=== PATIENT | female | born 1970 | race African-American/Black ===

== ENCOUNTER 2020-09-03 11:11 | Outpatient (REF) | payer OTHER, SELFPAY ==
[2020-09-03 12:02] LABS: Hematocrit 38.8 % (37-47); Hemoglobin 12.8 g/dl (12.0-16.0); Mean Corpuscular Hemoglobin 28.2 pg (27.0-33.0); Mean Corpuscular Volume 85.5 fL (80-98); Mean Platelet Volume 10.3 fL (9.4-12.3); Platelet Count 268 X10*3/uL (160-400); Red Blood Count 4.54 X10*6/uL (4.20-5.50); Red Cell Distribution Width 13.9 % (11.0-16.0); White Blood Count 5.5 X10*3/uL (4.8-10.8)
[2020-09-03 12:25] LABS: Alanine Aminotransferase 12 U/L (0-31); Albumin Level 4.4 g/dL (3.5-5.0); Alkaline Phosphatase 84 U/L (39-117); Anion Gap 12 (12-20); Aspartate Amino Transferase 13 U/L (5-31); Bilirubin Total 0.2 mg/dL (0.0-1.0); Blood Urea Nitrogen 9 mg/dL (9-16); Calcium 9.5 mg/dL (8.4-10.2); Carbon Dioxide 31 mmol/L (22-29); Chloride 101 mmol/L (96-108); Cholesterol 199 mg/dL; Estimated Glomerular Filt Rate > 60; Glucose Fasting 98 mg/dL (60-99); HDL Cholesterol 55 mg/dL; LDL Cholesterol Calculated 131 mg/dl; Potassium 3.3 mmol/L (3.3-5.1); Sodium 141 mmol/L (135-145); Total Protein 7.2 g/dL (6.5-8.0); Triglycerides 69 mg/dL
[2020-09-03 12:46] LABS: TSH reflex Free T4 0.32 uIU/mL (0.32-4.0)
[2020-09-03 13:51] LABS: Creatinine Urine 139.63 mg/dL; Microalbum/Creatinine Ratio Ur 7.8 ug/mg cr
== END 2020-09-03 11:12 | disposition home or self-care (01) ==
LOC: HO.LAB 11:11
PROVIDERS: PCP Physician Assistant; Visit Provider Physician Assistant
DX: E78.5 Hyperlipidemia, unspecified (principal); I10 Essential (primary) hypertension
CPT/HCPCS: 36415; 80053; 80061; 82043; 84443; 85027

== ENCOUNTER 2021-01-26 08:40 | Outpatient (RCR) | payer OTHER, SELFPAY ==
--- NOTE | 2021-02-07 17:27 | MHC.SP.ADU ---
Referring provider: Paulo Maldonado PA-C Reason for Referral: Severe aphasia Type of Treatment: 96747 Evaluation Speech Sound Production WITH Language Date of Plan of Treatment: 01/26/21 Onset of Symptoms/Illness: 03/19/09 Date Treatment Started: 01/26/21 Medical Diagnosis: Stroke 2010 Primary Speech Language Diagnosis: R47.01 Aphasia Secondary Speech Language Diagnosis: R41.841 Cognitive communication disorder History Patient is a 50 year old woman who attended this evaluation unaccompanied. Patient was brought to this appointment by a transportation service which was provided by her insurance plan. Background information included in this report was obtained from a written intake form, which patient had previously completed with assistance from a friend. Patient reports she is currently homeless and residing with her friend. Patient wears glasses and uses a cane. Patient is a high school graduate who also held a graduate certificate in phlebotomy. She was referred for a speech-language evaluation by Paulo Maldonado PA-C for assessment of dysarthria following cerebral infarction and potential interest in an AAC device or speech tablet. Patient indicated that her medical history was significant for stroke in 2009 and hypertension. Patient reports difficulties in the following areas of communication and cognition: sometimes difficulty swallowing, maintaining topic of conversation, oral motor weakness; and frequently difficulty expressing thoughts, being understood by others, understanding what others are saying, orientation/memory, problem solving, attention, reading/writing, finding words, following directions. Patient uses ASL and writes with pen/paper to communicate. Patient reports that her speech and language difficulties impact, ?everything,? and that she wants to ?freely be able to express herself to others, understand them, and them understand her in all her activities/situations.? Medical History: High Blood Pressure Stroke Social History: Current Living Situation: Patient reports she is homeless. She is currently residing with a friend. Assistive Devices in use: Cane Glasses/Contacts Swallowing History: Dysphagia Specific: Comments: Patient reports difficulty swallowing sometimes. Patient is recommended modified barium swallow study (MBSS) due to reports of dysphagia and underlying history of previous stroke in 2009. Reported Speech, Language, Cognition difficulties: Understanding Attention Reading Memory Cognition Speaking Problem Solving Writing Swallowing Assessment Speech Production: Aphasic: Nonfluent Clinical Impression: Impaired Observations: Patient's verbal productions, which were clear and intelligible, were limited to the following verbal exchanges: Hello, Thank you, and What? Informal Voice Assessment: Voice Loudness: Normal Voice Nasal Resonance: Normal Voice Oral Resonance: Normal Voice Phonatory-based Quality: Normal Voice Pitch: Normal Voice Other Observations: Clinical Impression: Did Not Test Tests of Speech & Lang Adults: BDAE Clinical Impression: Impaired Observations: Patient was administered the Auditory Comprehension, Oral Expression, Reading and Writing subtests of the [place] Diagnostic Aphasia Examination (BDAE). The BDAE is an assessment used to evaluate for receptive and expressive aphasia in individuals 16 years and older. Her performance is summarized below: RECEPTIVE LANGUAGE: -Patient followed single step commands presented verbally in 15 out of 16 trials. Patient mis-identified the target word ?tulip? when presented with an array of 4 images depicting 4 different types of plants. -During a basic word discrimination task, patient identified the line image which best depicted the word spoken by the clinician from a choice of 4 in 13 out of 14 trials. -Patient followed multistep and complex directions in 4 out of 6 trials. Patient requested an additional repetition twice during this activity. -Patient correctly answered yes/no questions about ideational material in 2 out of 4 trials and about short stories read aloud for her in 3 out of 8 trials. EXPRESSIVE LANGUAGE: -Patient demonstrates impaired automatic speech. Patient provided 3 out of 7 days of the week. Patient perseverated on and repeated ?Sunday, Sunday, .? Patient was able to sign 1-10, but was not able to count beyond 10. Patient did not count verbally. -Patient repeated single words produced by the clinician in 3 out of 5 trials and complete sentences in 0 out of 2 trials. Patient exhibited difficulty coordinating syllables in the words, ?Restorationist Jainism? and ?Emphasize.? Patient correctly repeated single-syllable words ?Brown,? ?Chair,? and ?What.? When presented with sentences, patient shook her head. When asked if patient would give this task a try, patient wrote, ?I can?t.? -Patient correctly answered responsive naming questions presented to her verbally (i.e. ?What do you use to shave?? for target word ?Razor?) in 0/5 trials. Patient gestured to demonstrate understanding of the question being asked. For example, when asked, ?What do you cut paper with?,? Patient gestured cutting motion. When asked, ?What do you do with a pencil?,? Patient gestured a writing motion. When patient exhibited difficulty answering these questions verbally, patient was asked to write her responses using a marker and whiteboard. Patient was not able to write her responses to these questions. READING: -Patient was able to match letters across cases and different scripts, demonstrating basic symbol recognition- 4/4 correct. -Patient was able to match numbers to fingers and dot patterns- 4/4 correct -Patient matched pictures to written words - 3/4 correct -Patient exhibited difficulty reading aloud single words. Patient correctly read aloud ?chair,? one out of the five words she was instructed to read. When attempted to read the test item, ?fifteen,? patient stated, ?one?five.? - 05/31 score. Patient attempted to read aloud complete sentences. Patient exhibited difficulty reading functor words, such as ?and,? ?the,? and ?when.? Patient also omitted some words when reading sentences. Patient read aloud most content words in each sentence. However, to receive a score, patient was to read each sentence without error, which was difficult for the patient. She received a score 0/5. -Patient was instructed to read aloud sentence prompts and to select a word or phrase to complete each sentence from a choice of 4. Patient exhibited difficulty reading these prompts aloud, but reported she was able to read them to herself. She correctly completed these sentences in 2/3 and 2/4 trials. Patient completed some sentence prompts with information that was related, but incorrect. For example, she completed the prompt, ?A dog can?? with ?cat.? WRITING: -Patient was able to print her name. When asked to sign her name, patient again printed her name. Patient did not write in cursive. -Patient copied the sentence, ?The quick brown lopez jumps over the lazy dog? without any errors. -Patient was able to write dictated letters presented to her by the clinician verbally. -Patient was able to write numbers 1-10, but exhibited difficulty writing a number series to dictation. -Patient wrote primer words (i.e. cat; run; go) correctly. When instructed to write, ?dog,? patient wrote, ?to.? Patient was instructed to write words with regular phonics to dictation. Patient correctly wrote ?apartment.? When asked to write ?flag,? patient seemed to have perseverated on previous test items, and wrote, ?running.? Patient was instructed to write common irregular forms. Patient correctly wrote ?knife? and ?cough.? When asked to write ?nation,? patient wrote, ?Parpi.? -Patient was presented with 4 images. She was instructed to write the names of each image. This was a written picture naming task. Patient correctly wrote ?tree.? She used written words to correctly name images in 1 out of 4 trials. Based on results of this evaluation, patient presents with a MODERATE cognitive-linguistic impairment and a SEVERE receptive-expressive aphasia. Based on patient?s performance during this evaluation, patient?s cognitive challenges include impairments in attention, memory, executive function, language, and visuospatial skills. Patient?s receptive-expressive aphasia is characterized by global impairments in automatic speech, repetition, answering questions (yes/no; WH-), and word finding. These difficulties are manifested in patient?s verbal communication as well as her written language. During today?s evaluation, patient?s verbal exchanges included, ?Hello,? ?Thank you,? and ?What?? Otherwise, patient relied on other alternative modes to communicate to successfully communicate with the clinician during this evaluation. Patient used ASL, gestures, and wrote/italia pictures with a marker on a whiteboard. It is clear that these challenges impact all areas of this patient?s life profoundly. It is strongly recommended for patient to participate in further evaluation for AAC candidacy with a speech-language pathologist who is specialized in AAC. Furthermore, patient is recommended a modified barium swallow study (MBSS) due to reports of difficulty swallowing. Tests of Cognition: CLQT Clinical Impression: Impaired Observations: Patient was administered the Cognitive Linguistic Quick Test (CLQT). The CLQT is a criterion-referenced assessment used to gain information about an individual?s relative strengths and weaknesses and to identify deficits in cognitive-linguistic skills in individuals aged 18-89 years old. The CLQT generates severity ratings in the following five cognitive domains: Attention, Memory, Language, Executive Functions, and Visuospatial Skills. Patient?s performance on the CLQT is displayed below: Task: Criterion Cut Score, Patient?s Score, Interpretation Personal Facts: 8, 5, Below Average Symbol Cancellation: 11, 12, Within Functional Limits Confrontational Namin, 2, Below Average Clock Drawin, 11, Below Average Story Retellin, 1, Below Average Symbol Trails: 9, 0, Below Average Generative Namin, 1, Below Average Design Memory: 5, 5, Within Functional Limits Mazes: 7, 8, Within Functional Limits Design Generation: 6, 5, Below Average Task scores were summed together based on cognitive domain. Cognitive Domain scores are as follows: Cognitive Domain: Domain Score, Severity Range, Severity Rating Attention: 157, Mild, 3 Memory: 92, Severe, 1 Executive Functions: 14, Severe, 1 Language: 9, Severe, 1 Visuospatial Skills: 73, Mild, 3 Patient?s Composite Severity Rating of 1.8 is interpreted as a MODERATE COGNITIVE LINGUISTIC IMPAIRMENT according to her performance on this assessment measure. Attention skills include the ability to maintain attention over time, selectively disengage from one task to engage in a new one, and the ability to coordinate the demands of multiple tasks (Rosas, 2001). Patient was able to attend to simple, short tasks but exhibited some difficulty coordinating the demands of multiple tasks at once. Patient demonstrated impaired memory skills according to her performance on the CLQT. Memory is a complex process that includes the ability to attend to, process, retain, store, and retrieve information (Denice-Libanoks, 2001). Patient was able to accurately retrieve information about personal facts (integrity of previously stored information), such as her date, place of , and her age. She was not able to provide an address, as she is currently homeless and resides with a friend. Patient answered yes/no questions correctly in 5/6 trials, indicating that she recalled some details about a story verbally presented by the clinician (immediate recall of new information presented in a paragraph). Patient was not able to re-tell this story when instructed to do so due to severe expressive aphasia. Patient demonstrated a severe impairment in executive function skills based on her performance on the CLQT. Patient completed tasks that assessed her ability to plan, sequence, implement, and accomplish goal-directed activities in flexible manner, taking into consideration situational and environmental changes (Denice-Libanoks, 2001). Patient completed mazes of increasing complexity without any difficulties within the given time constraint. Patient was observed to pause and study the maze periodically as she created a route. Patient exhibited significant difficulyty with the design generation activity. Individuals with typical neurological cognitive-linguistic skills typically generate more designs by creating a pattern in alternating positions of the designs. Patient perseverated on her designs, copied example designs generated by the clinician, and italia designs with three or five lines rather than four lines as instructed. This reflects some inflexibility in the generation of new designs or ideas. Patient demonstrated severe impairment in her language skills based on her performance on the CLQT. Patient was able to answer yes/no questions about a spoken paragraph. Patient answered yes/no with a gesture (head nod/head shake) or pointed to written ?yes/no? options on a sheet of paper. Patient exhibited difficulty with confrontational naming and generative naming tasks. She presents with severe global aphasia, further detailed below. Visuospatial skills include the ability to scan, discriminate, analyze, and interpret visual information (Neto, 2001). Patient was able to remember a symbol and recognize it in a visual field that included several other symbols (symbol cancellation task); and recalled designs to choose the one she had studied in a choice of six (design memory task). She exhibited difficulty in another task targeting visuo-spatial skills, which required her to draw lines between alternating shapes of different sizes. Patient was reminded of task instructions and was provided with examples, as permitted by test administration guidelines. Augmentative and Alternative Communication: Could Not Test Observations: FURTHER TESTING RECOMMENDED Impressions and Recommendations Summary: Impact on Daily Function/Activity Limitations: Daily Activities: Severe Interpersonal Interactions: Severe Education: Severe Employment: Severe Community: Severe Prognosis for Improvement: Fair Recommendation for Speech Therapy: Outpatient Speech Therapy Modified Barium Swallow Study - Outpatient Detention Goals: 1.) Patient will use a total communication approach (signs, gestures, writing) to express her wants and needs. Short Term Goals: Goal # : 1.) Patient will create an APHASIA CARD, which will include information for personal safety (name, phone number, address, emergency contact) and to educate others about her aphasia (definition, helpful strategies) with 100% completion with moderate assistance from the clinician. Goal Status: New Goal Goal# : 2.) Patient will write or type single words with 7 or fewer letters at 80% accuracy given frequent maximal verbal and maximal visual cues in order to communicate basic wants and needs. Goal Status: New Goal Goal # : 3.) Patient will use nonverbal communication (i.e. gesture, ?showing? items such as ID, writing responses) to answer simple biographical questions at 80% accuracy given frequent maximal verbal and maximal visual cues. Goal Status: New Goal Recommended Referrals to be Discussed with Primary Care Provider: Neurology 1. Patient is recommended consultation with a neurologist due to history of CVA. 2. Patient is recommended a modified barium swallow study (MBSS) due to reports of dysphagia and underlying history of previous CVA. 3. Patient is recommended a consultation with a speech-language pathologist who is specialized in the area of AAC. Patient expressed interest in an AAC device or speech tablet. Throughout our evaluation today, patient?s verbal exchanges were limited and she most successfully communicated with the clinician using alternative methods, including ASL, writing, and gestures. 4. Recommend patient to participate in 12 weekly individualized speech therapy visits with goals targeting functional communication. Patient Education: Completed: Yes Patient/Caregiver Education: Described Results of Evaluation Patient expressed understanding of evaluation Comments/Barriers to Learning: It has been a pleasure meeting and working with Ms. Bernardo. Please do not hesitate to contact me at [phone] with any questions regarding the content of this report or if I can be of further assistance. Gang Mower Operator Clinican/Clinical Fellow: Yes: Darcy López Supervisory Statement: N/A Speech Language Pathologist: Ernestine Briones M.A., CCC-SECURITY SYSTEMS INSTALLER
== END 2021-01-26 11:00 | disposition home or self-care (01) ==
LOC: HO.SH 08:40
PROVIDERS: Visit Provider Physician Assistant
DX: I69.322 Dysarthria following cerebral infarction (principal)
CPT/HCPCS: 92523

== ENCOUNTER 2021-02-02 17:17 | Outpatient (REF) | payer OTHER, SELFPAY ==
[2021-02-02 18:22] LABS: Hematocrit 39.3 % (37.0-47.0); Hemoglobin 12.9 g/dl (12.0-16.0); Mean Corpuscular HGB Conc 32.8 g/dl (31.0-35.0); Mean Corpuscular Hemoglobin 28.3 pg (27.0-33.0); Mean Corpuscular Volume 86.2 fL (80.0-98.0); Mean Platelet Volume 10.3 fL (9.4-12.3); Platelet Count 285 X10*3/uL (160-400); Red Blood Count 4.56 X10*6/uL (4.20-5.50); Red Cell Distribution Width 14.6 % (11.0-16.0); White Blood Count 8.1 X10*3/uL (4.8-10.8)
[2021-02-02 18:27] LABS: Creatinine Urine 176.15 mg/dL; Microalbum/Creatinine Ratio Ur 11.3 ug/mg cr
[2021-02-02 18:33] LABS: Alanine Aminotransferase 14 U/L (0-31); Albumin Level 4.3 g/dL (3.5-5.0); Alkaline Phosphatase 94 U/L (39-117); Anion Gap 12 (12-20); Aspartate Amino Transferase 14 U/L (5-31); Bilirubin Total 0.2 mg/dL (0.0-1.0); Blood Urea Nitrogen 13 mg/dL (9-16); Calcium 9.2 mg/dL (8.4-10.2); Carbon Dioxide 32 mmol/L (22-29); Chloride 98 mmol/L (96-108); Cholesterol 188 mg/dL; Estimated Glomerular Filt Rate > 60; Glucose Fasting 87 mg/dL (60-99); HDL Cholesterol 54 mg/dL; LDL Cholesterol Calculated 107 mg/dl; Potassium 3.3 mmol/L (3.3-5.1); Sodium 139 mmol/L (135-145); Total Protein 7.3 g/dL (6.5-8.0); Triglycerides 138 mg/dL
[2021-02-02 18:53] LABS: TSH reflex Free T4 0.47 uIU/mL (0.32-4.0)
== END 2021-02-02 17:18 | disposition home or self-care (01) ==
LOC: HO.LAB 17:17
PROVIDERS: PCP Physician Assistant; Visit Provider Physician Assistant
DX: I10 Essential (primary) hypertension (principal); E78.5 Hyperlipidemia, unspecified
CPT/HCPCS: 36415; 80053; 80061; 82043; 84443; 85027

== ENCOUNTER 2021-02-15 17:27 | Outpatient (REF) | payer OTHER, SELFPAY ==
[2021-02-15 18:44] LABS: Appearance Urine HAZY; Color Urine YELLOW; Glucose Urine UA NEG (NEG); Leukocyte Esterase Urine TRACE (NEG); Nitrite Urine POS (NEG); UACC Culture Trigger YES; Urine Blood NEG (NEG); Urine Ketones 5 MG/DL (NEG); Urine Protein NEG (NEG-TRACE)
[2021-02-15 18:51] LABS: Bacteria Urine 4+ /LPF; Mucus Urine 1+ /LPF; RBC Urine 0 /HPF (0); Squamous Epithelial Cell Urine 1+ /LPF
== END 2021-02-15 17:28 | disposition home or self-care (01) ==
LOC: HO.LAB 17:27
PROVIDERS: PCP Physician Assistant; Visit Provider Physician Assistant
DX: R30.0 Dysuria (principal)
CPT/HCPCS: 81001; 87086; 87088; 87186

== ENCOUNTER 2021-11-02 10:26 | Outpatient (REF) | payer OTHER, SELFPAY ==
[2021-11-02 11:16] LABS: Hematocrit 38.3 % (37.0-47.0); Hemoglobin 12.6 g/dl (12.0-16.0); Mean Corpuscular HGB Conc 32.9 g/dl (31.0-35.0); Mean Corpuscular Hemoglobin 28.1 pg (27.0-33.0); Mean Corpuscular Volume 85.5 fL (80.0-98.0); Mean Platelet Volume 10.4 fL (9.4-12.3); Platelet Count 270 X10*3/uL (160-400); Red Blood Count 4.48 X10*6/uL (4.20-5.50); Red Cell Distribution Width 14.5 % (11.0-16.0); White Blood Count 5.9 X10*3/uL (4.8-10.8)
[2021-11-02 12:16] LABS: Alanine Aminotransferase 23 U/L (0-31); Alkaline Phosphatase 94 U/L (39-117); Anion Gap 12 (12-20); Aspartate Amino Transferase 17 U/L (5-31); Bilirubin Total 0.2 mg/dL (0.0-1.0); Blood Urea Nitrogen 9 mg/dL (9-16); Calcium 8.7 mg/dL (8.4-10.2); Carbon Dioxide 28 mmol/L (22-29); Chloride 106 mmol/L (96-108); Estimated Glomerular Filt Rate > 60; Glucose Fasting 81 mg/dL (60-99); Iron 103 mcg/dL (30-160); Percent Iron Saturation 47 % (15-50); Potassium 3.7 mmol/L (3.3-5.1); Sodium 142 mmol/L (135-145); Total Iron Binding Capacity 218 mcg/dL (228-428); Unsaturated Iron Binding 115 ug/dL
[2021-11-02 12:33] LABS: HIV AB/AG Nonreactive (Nonreactive); HIV Num 1 0.09 S/CO (0.00-0.99)
[2021-11-02 12:43] LABS: TSH reflex Free T4 0.67 uIU/mL (0.32-4.0)
[2021-11-02 13:11] LABS: Folate 5.4 ng/mL (> or = 4.0); Vitamin B12 258 pg/mL (200-900)
[2021-11-02 13:50] LABS: Appearance Urine Clear; Color Urine Yellow; Glucose Urine UA Negative (Negative); Leukocyte Esterase Urine Negative (Negative); Nitrite Urine Negative (Negative); Specific Gravity - Urine <= 1.005 (1.005-1.025); Urine Blood Negative (Negative); Urine Ketones Negative (Negative); Urine Protein Negative (Neg-Trace)
== END 2021-11-02 10:27 | disposition home or self-care (01) ==
LOC: HO.LAB 10:26
PROVIDERS: PCP Physician Assistant; Visit Provider Physician Assistant
DX: Z11.4 Encounter for screening for human immunodeficiency virus [HIV] (principal); I10 Essential (primary) hypertension; R63.4 Abnormal weight loss; R30.0 Dysuria; E53.8 Deficiency of other specified B group vitamins; D50.9 Iron deficiency anemia, unspecified
CPT/HCPCS: 36415; 80053; 81003; 82306; 82607; 82746; 83540; 84443; 85027; 87389

== ENCOUNTER → 2022-02-01 14:22 | Outpatient (BNVA) | payer OTHER, SELFPAY | PROVIDERS: PCP Physician Assistant; Visit Provider Psychiatry & Neurology Neurology | DX: I69.320 Aphasia following cerebral infarction (principal); I69.351 Hemiplegia and hemiparesis following cerebral infarction affecting right dominant side; I69.322 Dysarthria following cerebral infarction; G47.10 Hypersomnia, unspecified; R25.2 Cramp and spasm | CPT/HCPCS: 99202 ==

== ENCOUNTER → 2022-03-02 13:57 | Outpatient (REF) | payer OTHER, SELFPAY | LOC: HO.SL 13:57 | PROVIDERS: Visit Provider Psychiatry & Neurology Neurology | DX: G47.10 Hypersomnia, unspecified (principal); G47.9 Sleep disorder, unspecified; I10 Essential (primary) hypertension | CPT/HCPCS: 95806 ==

== ENCOUNTER 2022-08-03 11:24 | Outpatient (REF) | payer OTHER, SELFPAY ==
[2022-08-03 12:24] LABS: Hematocrit 41.5 % (37.0-47.0); Hemoglobin 13.5 g/dl (12.0-16.0); Mean Corpuscular HGB Conc 32.5 g/dl (31.0-35.0); Mean Corpuscular Hemoglobin 28.6 pg (27.0-33.0); Mean Corpuscular Volume 87.9 fL (80.0-98.0); Mean Platelet Volume 9.8 fL (9.4-12.3); Platelet Count 240 X10*3/uL (160-400); Red Blood Count 4.72 X10*6/uL (4.20-5.50); Red Cell Distribution Width 14.1 % (11.0-16.0); White Blood Count 5.5 X10*3/uL (4.8-10.8)
[2022-08-03 12:26] LABS: Hematocrit 42.2 % (37.0-47.0); Hemoglobin 13.5 g/dl (12.0-16.0); Mean Corpuscular Hemoglobin 28.2 pg (27.0-33.0); Mean Corpuscular Volume 88.1 fL (80.0-98.0); Mean Platelet Volume 9.9 fL (9.4-12.3); Platelet Count 244 X10*3/uL (160-400); Red Blood Count 4.79 X10*6/uL (4.20-5.50); Red Cell Distribution Width 14.1 % (11.0-16.0); White Blood Count 5.6 X10*3/uL (4.8-10.8)
[2022-08-03 12:52] LABS: Creatinine Urine 214.76 mg/dL; Microalbum/Creatinine Ratio Ur 6.9 ug/mg cr
[2022-08-03 12:53] LABS: Alanine Aminotransferase 17 U/L (0-31); Albumin Level 4.2 g/dL (3.5-5.0); Alkaline Phosphatase 78 U/L (39-117); Anion Gap 12 (12-20); Aspartate Amino Transferase 16 U/L (5-31); Bilirubin Total 0.4 mg/dL (0.0-1.0); Blood Urea Nitrogen 9 mg/dL (9-16); Calcium 9.3 mg/dL (8.4-10.2); Carbon Dioxide 30 mmol/L (22-29); Chloride 107 mmol/L (96-108); Cholesterol 197 mg/dL; Estimated Glomerular Filt Rate > 60; Glucose Fasting 93 mg/dL (60-99); HDL Cholesterol 61 mg/dL; LDL Cholesterol Calculated 122 mg/dl; Potassium 4.1 mmol/L (3.3-5.1); Sodium 145 mmol/L (135-145); Triglycerides 70 mg/dL
[2022-08-03 13:14] LABS: TSH reflex Free T4 0.75 uIU/mL (0.32-4.0)
[2022-08-03 15:09] LABS: Folate 8.8 ng/mL (> or = 4.0); Vitamin B12 315 pg/mL (200-900); Vitamin D 25-OH Total 51.3 ng/mL (>30)
== END 2022-08-03 11:25 | disposition home or self-care (01) ==
LOC: HO.LAB 11:24
PROVIDERS: PCP Physician Assistant; Visit Provider Physician Assistant
DX: I69.322 Dysarthria following cerebral infarction (principal); I10 Essential (primary) hypertension; F32.A Depression, unspecified
CPT/HCPCS: 36415; 80053; 80061; 82043; 82306; 82607; 82746; 84443; 85027

== ENCOUNTER → 2022-08-21 14:53 | Outpatient (BNVA) | payer OTHER, SELFPAY | PROVIDERS: PCP Physician Assistant; Visit Provider Psychiatry & Neurology Neurology | DX: G81.11 Spastic hemiplegia affecting right dominant side (principal); I69.320 Aphasia following cerebral infarction; G47.10 Hypersomnia, unspecified; R25.2 Cramp and spasm | CPT/HCPCS: 99212 ==

== ENCOUNTER 2022-08-30 13:00 | Outpatient (RCR) | payer OTHER, SELFPAY ==
--- NOTE | 2022-08-09 16:46 | MHC.OT.EP ---
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 Her initial referral indicated that she is requiring assist with communication device as pt. is having difficulty using it, although her friend reports that there is a speech order in and they are awaiting appointment. Will defer communication goals to LATRINE CLEANER. Pt with significant tone and synergy pattern of R UE. She reports moving recently and no longer has her resting hand splint. Pt was fitted for right hand/wrist resting splint with modifications to thumb for increased comfort. Also issued oval 8 splint for thumb IP joint to facilitate extension. Pt. was educated in indications, wearing schedule and skin checks. Mulu has some AROM of right shoulder and elbow; has not been educated in exercises for home program. We discussed short term therapy 1x/wk for 4 weeks to assist with tone management, establishing home program, and monitoring splint wear. Pt. is in agreement with plan. Frequency and Duration: The patient will be seen 1x/wk for 4 weeks Short Term Goals: IND with nighttime orthosis for improved positioning IND with AA/PROM exercises for HEP Pt will use R hand as a stabilizing assist for daily tasks Pt will be educated in tone management strategies for R hand Detention Goals: Same as above Treatment Plan: Therapeutic Exercise Therapeutic Activity Home Exercise Program Splinting Neuro Re-ed Patient Education ADL Training MHP Joint Mobilization Soft Tissue Mobilization Electronically Signed By: Julissa Arzola, OTR/L Please Sign and return to therapist. Thank you once again for your referral.
== END 2022-09-26 10:15 | disposition home or self-care (01) ==
LOC: HO.OT 13:00
PROVIDERS: PCP Physician Assistant; Visit Provider Physician Assistant
DX: I69.320 Aphasia following cerebral infarction (principal)
CPT/HCPCS: 29125; 97110; 97112; 97140; 97165; 97760

== ENCOUNTER → 2022-10-25 19:30 | Outpatient (REF) | payer OTHER, SELFPAY | LOC: HO.SL 19:30 | PROVIDERS: PCP Physician Assistant; Visit Provider Psychiatry & Neurology Neurology | DX: G47.10 Hypersomnia, unspecified (principal); R25.2 Cramp and spasm; G47.9 Sleep disorder, unspecified; Z86.73 Personal history of transient ischemic attack (TIA), and cerebral infarction without residual deficits | CPT/HCPCS: 95810 ==

== ENCOUNTER → 2022-10-25 21:52 | Outpatient (BNV) | payer OTHER, SELFPAY | PROVIDERS: PCP Physician Assistant; Visit Provider Psychiatry & Neurology Neurology | DX: R06.83 Snoring (principal) | CPT/HCPCS: 95810 ==

== ENCOUNTER 2022-12-04 16:04 | Outpatient (REF) | payer OTHER, SELFPAY ==
[2022-12-04 17:20] LABS: Alanine Aminotransferase 28 U/L (0-31); Alkaline Phosphatase 107 U/L (39-117); Anion Gap 10 (12-20); Aspartate Amino Transferase 20 U/L (5-31); Bilirubin Total 0.1 mg/dL (0.0-1.0); Blood Urea Nitrogen 9 mg/dL (9-16); Calcium 8.9 mg/dL (8.4-10.2); Carbon Dioxide 28 mmol/L (22-29); Chloride 104 mmol/L (96-108); Cholesterol 175 mg/dL (<200); Estimated Glomerular Filt Rate > 60; Glucose Fasting 90 mg/dL (60-99); HDL Cholesterol 58 mg/dL (>40); LDL Cholesterol Calculated 95 mg/dL (<100); Potassium 3.8 mmol/L (3.3-5.1); Sodium 138 mmol/L (135-145); Total Protein 7.2 g/dL (6.5-8.0); Triglycerides 111 mg/dL (<150)
[2022-12-04 17:37] LABS: Vitamin D 25-OH Total 56.2 ng/mL (>30)
[2022-12-04 17:52] LABS: Folate 5.5 ng/mL (> or = 4.0); Vitamin B12 333 pg/mL (200-900)
[2022-12-04 18:29] LABS: Creatinine Urine 76.06 mg/dL; Microalbum/Creatinine Ratio Ur 6.5 ug/mg cr (<30)
[2022-12-04 18:41] LABS: Appearance Urine Clear; Color Urine Yellow; Glucose Urine UA Negative (Negative); Leukocyte Esterase Urine Trace (Negative); Nitrite Urine Negative (Negative); Specific Gravity - Urine 1.015 (1.005-1.025); UMIC TRIGGER UACC YES; Urine Blood Negative (Negative); Urine Ketones Negative (Negative); Urine Protein Negative (Neg-Trace)
[2022-12-04 20:43] LABS: Bacteria Urine None Seen (None Seen); Hyaline Casts Urine 0-2 /LPF (0-2); RBC Urine 0-2 /HPF (0-2); WBC Urine 0-5 /HPF (0-5)
== END 2022-12-04 16:05 | disposition home or self-care (01) ==
LOC: HO.LAB 16:04
PROVIDERS: PCP Physician Assistant; Visit Provider Physician Assistant
DX: I10 Essential (primary) hypertension (principal); E78.5 Hyperlipidemia, unspecified; R39.9 Unspecified symptoms and signs involving the genitourinary system; E53.8 Deficiency of other specified B group vitamins; E55.9 Vitamin D deficiency, unspecified; R41.3 Other amnesia
CPT/HCPCS: 36415; 80053; 80061; 81001; 81003; 82043; 82306; 82570; 82607; 82746

== ENCOUNTER 2022-12-06 13:12 | Outpatient (AMB) | payer OTHER, SELFPAY ==
[2022-12-06 13:16] VITALS: BP 138/82; PULSE 80; O2SAT 98; BMI 27.2
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
== END 2022-12-06 14:11 | disposition home or self-care (01) ==
PROVIDERS: Visit Provider Physician Assistant
DX: Z00.00 Encounter for general adult medical examination without abnormal findings (principal); I10 Essential (primary) hypertension; G81.11 Spastic hemiplegia affecting right dominant side; F33.1 Major depressive disorder, recurrent, moderate; G40.909 Epilepsy, unspecified, not intractable, without status epilepticus
CPT/HCPCS: 99396

== ENCOUNTER 2023-01-01 12:54 | Outpatient (RCR) | payer OTHER, SELFPAY ==
--- NOTE | 2023-01-02 14:49 | MHC.SP.ADU ---
Referring provider: Paulo Maldonado PA-C Reason for Referral: aphasia following cerebral infarction Type of Treatment: 24535 Evaluation Speech Sound Production WITH Language Date of Plan of Treatment: 01/01/23 Onset of Symptoms/Illness: 01/01/23 Date Treatment Started: 01/01/23 Medical Diagnosis: s/p CVA Primary Speech Language Diagnosis: R47.01 Aphasia History Mulu Bernardo is a 52 year old referred for an evaluation by Guanakito Maldonado PA-C. 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 Mulu was accompanied to this assessment on 01/01/2023 by her HCP, Julissa Rodriguez. Most background information was obtained through a prior phone call and patient intake form from Julissa Rodriguez. Julissa reports a concern for Mulu?s language, cognition, and ability to use her designated Alternative and Augmentative Communication (AAC) device. Julissa reports a recent decline in both Mulu?s receptive and expressive communication skills; having difficulty both getting her message across to others and understanding others. Julissa reports ?we?re at a loss when she?s trying to tell a story.? Mulu?s difficulties with language and cognition are reportedly affecting her ability to participate in every day hobbies and social activities. Mulu reports a concern for both her language and cognition. Medical History: Stroke Medication List: carbamazepine, labetalol, amlodipine, famotidine, memantine, Lisinopril, clopidogrel, hydrochlorothiazide, atoravastatin, mirtazapine Respiratory Needs: Room Air Patient Orientation: Alert & Oriented x 4 Social History: Employment Status: Unemployed Highest level of education obtained: Completed High School/GED Current Living Situation: Lives independently Assistive Devices in use: Glasses Reported Speech, Language, Cognition difficulties: Understanding Attention Memory Cognition Speaking Problem Solving Writing Assessment Speech Production: Aphasic: Nonfluent Observations: Throughout today?s evaluation, Mulu communicated with a variety of modalities including verbal language, writing, sign language, and gestures. She largely communicates verbally with one word responses and produces some longer automatic phrases such as ?I don?t know.? Mulu attended today?s session with a tablet loaded with the Augmentative and Alternative Communication (AAC) application [employer]. The application is set up with a 6x6 grid (36 icons). Corroborated by her HCP, Mulu communicated that she has difficulty using the application. She produced various words via AAC followed by immediate attempts to repeat words verbally; some more successful than others. Mulu then communicated that her name was spelled incorrectly on her device by first selecting the icon, verbally stating ?no,? and writing the correct spelling of her last name on a whiteboard. Informal Voice Assessment: Voice Loudness: Normal Voice Nasal Resonance: Normal Voice Oral Resonance: Normal Voice Phonatory-based Quality: Normal Voice Pitch: Normal Tests of Cognition: Cognitive Linguistic Quick Test (CLQT) Clinical Impression: Impaired Mulu was administered the Cognitive Linguistic Quick Test-Plus (CLQT+). The CLQT+ is designed to measure cognitive-linguistic functioning in five cognitive domains: attention, memory, language, executive functioning, and visuospatial skills. It is intended for use for adults with acquired neurological dysfunction ages 18 to 89 years old. Mulu communicated with verbal language, writing, and gestures throughout the CLQT+ administration. The following subtests of the CLQT+ were administered: Personal Facts: This subtest is designed to episodic memory, word retrieval, language comprehension, and language production. In this subtest the patient is asked questions regarding personal facts including birthdate, location, age, and address. Mulu fully and accurately provided her birthdate, location, and age. When asked, ?What is your complete current address?? Mulu initially responded to clinician with inquisitive look. The prompt was then reworded to, ?Where do you live?? Mulu required prompting to provide street designation and did not include either the city or state. Mulu scored 6 out of 8 on this subtest. Symbol Cancellation: This subtest is designed to assess visual attention and visuospatial skills. In this task, the individual is provided with an image of a specific symbol and instructed to cross out that symbol every time it occurs on a full page of various symbols. Mulu found 12 symbols as instructed. However, she after crossing out the first symbol accurately, she began to write check coombs next to each symbol. It is unclear whether this was Mulu not following the directions completely or making the task easier due to right sided paresis. Mulu scored 12 out of 12 on this subtest. Confrontational Naming: This subtest is designed to assess the domain of language. In this task, the individual is presented with a series of 10 line drawings and asked to name each item. Mulu named two items accurately using verbal speech. The rest Mulu answered accurately with writing and/or gestures. Mulu presented with some difficulty with spelling. For example, glasses was written as ?glass,? bananas as ?bannass,? and hammer as ?hammar.? Mulu presenting with groping of mouth while attempting to produce various words and sounds. When presented with an image of a chair, Mulu verbally produced phoneme /p/ before quickly and accurately writing ?chair.? Mulu frequently closed eyes and produced slow deep breaths during this subtest. Mulu answered all 10 items correctly with various modes of communication. Clock Drawing: This subtest is designed to be a screening tool for neurological dysfunction in its assessment of various cognitive domains including sustained attention, memory, executive functions, language, and visuospatial skills. During this task, the patient is asked given an image of a [place] and asked to draw a clock with hands set to ?ten minutes after eleven.? When provided the instructions to this subtest, Mulu presented with a confused look. Mulu benefitted from directions given more slowly with use of gestures and pointing to written instructions in booklet. Mulu?s clock had all 12 numbers reasonably spaced around the [place] with hands set to 11:00 rather than ?ten minutes after eleven.? Mulu scored 11 out of 13 on this subtest. Story Retelling: In this subtest the patient is asked to retell a short 4 sentence story that is read aloud to the patient by the clinician. This task is designed to measure attention, verbal working memory, and language (language comprehension and verbal production). Mulu was first prompted to retell the story using any mode of communication she desired. She did not produce any verbal response and opted to write instead. In writing, Mulu produced ?a my pocket? and ?am pocket at? demonstrating recall of one valentin story element out of a possible 18. Mulu was then administered a short auditory comprehension task in which the patient was asked yes/no questions about the story. In this recognition task, Mulu answered 3 out of 6 questions correctly. Mulu received an overall score of 1 out of 10 on the Story Retelling subtest. Symbol Trails: This subtest is designed to measure attention, executive functions (planning, working memory, mental flexibility), and visuospatial skills. The ultimate goal of this task is for the client to connect lines alternating between triangles and circles in a particular pattern as the shapes increase in size. The task begins with two trials. In the first trial the client is presented with circles of varying sizes and instructed to draw lines from the smallest to largest. In the second trial task, the patient is presented with circles and triangles and instructed to connect all the shapes, alternating between [place] and triangle. Mulu occasionally required the clinician to repeat instructions. In the first trial task, Mulu initially italia a line from the smallest [place] to the second smallest [place] before recognizing and correcting her mistake. Mulu completed the second trial task accurately. During the final task, Mulu initially italia a line from the smallest [place] to the second smallest [place] before quickly correcting her mistake. Mulu scored 9 out of 10 on this subtest. Generative Naming: This subtest is designed to measure working memory, language, and executive functioning. This subtest is divided into two tasks. First, the client is asked to name as many animals as they can in 1 minute. Second, the client is asked to name as many words that begin with the letter ?m? in 1 minute. During the second task, the client is instructed not to use proper nouns or ?the same word with a different ending? (i.e. mop, mopped, mopping). In both tasks, Mulu opted to use a marker and white board as opposed to verbal language. She produced a total of 5 animals: cat, dog, sheep, giraffe, and elephant. She italia the cat and wrote the rest of the words. Mulu produced a total of three ?m? words; only two of which followed the instructions: mitten and meeting. The third word produced was ?Trisha.? Mulu received a score of 2 out of 9 on the Generative Naming subtest. Design Memory: This subtest is designed to measure an individual?s immediate and working visual memory without much demand on the domain of language. The client is presented with two designs for 20 seconds then once the stimulus is removed, they are asked to select the two designs out of a vertical field of 6 designs. Mulu selected all 6 designs correctly, scoring 6 out of 6 on this subtest. Mazes: This subtest is designed to assess executive function, attention, and visuospatial skills. In this task the patient is asked to complete two mazes of increasing complexity in a particular time frame. Mulu?s performance was unremarkable. She completed each maze with time to spare in the designated allotted time. Mulu received a score of 8 out of 8 on this subtest. Design Generation: This subtest is designed to measure the cognitive domains of attention, executive functions and visuospatial skills without much demand on the domain of language. The client was given directions to connect four dots using four lines and provided with two examples. The client was given three minutes to make as many different designs as possible without copying the example designs. Mulu produced six designs in total, one of which was repeated twice, one had only three lines, and one had five lines. Mulu frequently paused to take deep breaths throughout this subtest. Mulu scored 2 out of 13 on this subtest. Semantic Comprehension: When presented with a page of several line drawings, Mulu was prompted to point to the picture that is described by the clinician. For example, ?Which one is a fruit?? Mulu accurately and quickly pointed to 9 of the 10 target prompts. With the prompt, ?Which one is pulled up and down? she pointed to a button-down shirt instead of the zipper. Factoring in her performance on this subtest and auditory comprehension questions throughout the entire CLQT+, Mulu scored an Auditory Comprehension score of 16 out of a possible 19. When compared to other individuals with aphasia between the ages of 18-69, uMlu scored within normal limits in non-linguistic cognition index score (Symbol Cancellation, Symbol Trails, Design Memory, Mazes, Design Generation) and received a moderately severe linguistic/aphasia index score (Personal Facts, Confrontation Naming, Story Retelling, Generative Naming, Semantic Comprehension). Impressions and Recommendations Summary: Based on today?s evaluation, Mulu presents with a severe non-fluent expressive aphasia and a moderate cognitive-linguistic impairment. Mulu presents with a relative strength of communicating messages of varying complexity with a variety of communication modalities. Mulu presented with some speech sound errors and groping of articulators. Further assessment of motor speech to rule in/out apraxia of speech or is recommended. Impact on Daily Function/Activity Limitations: Daily Activities: Severe Interpersonal Interactions: Severe Community: Severe Prognosis for Improvement: Fair Recommendation for Speech Therapy: Further Testing Needed Outpatient Speech Therapy Frequency/Duration: It is recommended for Mulu to participate in 1:1 speech and language therapy 1X weekly for 12 weeks in the outpatient setting Time to Reassess: 3 months Detention Goals: LTG 1 Mulu will complete additional standardized testing to obtain standardized scores and update goals as appropriate. LTG 2 Mulu will use a total communication approach (verbal, sign, gesture, writing) to express her wants and needs Short Term Goals: STG 1.1 Mulu will complete the [facility] Diagnostic Aphasia Evaluation (BDAE) with 100% completion to better inform goals. STG 1.2 Mulu will complete the Communication Activities of Daily Living ? Third Edition (CADL-3) with 100% completion to better inform goals. STG 2.1 Mulu will create an aphasia card, which will include information for personal safety (name, phone number, address, emergency contact) and educational information about aphasia (definition, helpful strategies) with 100% completion with moderate assistance from clinician. STG 2.2 Mulu will name functional items using a total communication approach (verbal, sign, gesture, writing) with moderate support (i.e. phonemic cues) with 80% accuracy during confrontational naming tasks. STG 2.3 Mulu will answer simple biographical questions with 80% accuracy using a total communication approach with moderate support. Patient Education: Completed: Yes Patient/Caregiver Education: Described Results of Evaluation Patient expressed understanding of evaluation Patient agrees with goals and treatment plan Family/Caregivers expressed understanding of results Family/Caregivers expressed agreement with goals and treatment plan It was a pleasure to meet and work with Mulu. If you have any questions about the contents of this report, do not hesitate to contact me at [phone] or [email or web address] Hostess Clinican/Clinical Fellow: No Supervisory Statement: N/A Speech Language Pathologist: Darcy López M.A., CCC-GUIDE [employer]
== END 2023-01-16 10:11 | disposition still patient (30) ==
LOC: HO.SH 12:54
PROVIDERS: Visit Provider Physician Assistant
DX: I69.320 Aphasia following cerebral infarction (principal); G81.11 Spastic hemiplegia affecting right dominant side
CPT/HCPCS: 92523

== ENCOUNTER 2023-04-02 11:00 | Outpatient (RCR) | payer OTHER, SELFPAY | END 2023-04-03 10:30 | disposition home or self-care (01) | LOC: HO.SH 11:00 | PROVIDERS: Visit Provider Physician Assistant | DX: I69.320 Aphasia following cerebral infarction (principal) | CPT/HCPCS: 92507 ==

== ENCOUNTER 2023-06-11 15:02 | Outpatient (AMB) | payer OTHER, SELFPAY ==
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
[2023-06-11 15:14] VITALS: BP 114/72; PULSE 84; RESP 16; O2SAT 97; BMI 27.6
== END 2023-06-11 16:02 | disposition home or self-care (01) ==
PROVIDERS: PCP Physician Assistant; Visit Provider Physician Assistant
DX: I10 Essential (primary) hypertension (principal); G81.11 Spastic hemiplegia affecting right dominant side; F33.1 Major depressive disorder, recurrent, moderate; G40.909 Epilepsy, unspecified, not intractable, without status epilepticus; I69.320 Aphasia following cerebral infarction
CPT/HCPCS: 99214

== ENCOUNTER 2023-12-12 14:36 | Outpatient (AMB) | payer OTHER, SELFPAY ==
--- NOTE | 2023-12-12 14:41 | A.OFFPC_ITS ---
Vital Signs 12/12/23 14:45 12/12/23 15:11 Height 5 ft 6 in Weight 195 lb 4 oz BMI 31.5 BP 164/104 H 130/100 H Blood Pressure Location Lt brachial Position Sitting Pulse 72 Pulse Source Pulse Oximeter Pulse Oximetry (%) 99 Oxygen Delivery Method Room Air Intake Visit Reasons: Annual exam - see comments Fine Arts Model Required: No Accompanied by: Proxy Allergies No Known Allergies Allergy (Verified 12/12/23 14:56) Medication List - Last Reconciled 12/12/23 by Paulo Maldonado PA-C amlodipine 10 mg PO DAILY 90 days atorvastatin 10 mg PO DAILY 90 days blood pressure test kit-medium As directed carbamazepine ER 300 mg PO BID cholecalciferol (vitamin D3) 50 mcg PO DAILY 90 days clopidogrel 75 mg PO DAILY diaper,brief,adult,disposable (Briefs Small) As directed famotidine 20 mg PO DAILY 90 days ferrous sulfate (FeroSul) 325 mg PO DAILY labetalol 400 mg (2 x 200 mg) PO BID lisinopril 40 mg PO DAILY 90 days melatonin 5 mg PO BEDTIME memantine 10 mg PO QPM 90 days mirtazapine 7.5 mg PO BEDTIME 90 days Tobacco use date assessed: 06/11/23 Dental Screening Dental Screen Date: 06/11/23 HPI Annual exam - see comments HPI Details Patient is a 53 year-old female here today?for follow-up visit . ? Patient has a past medical history significant for hypertension, MDD, h/o CVA complicated by dysarthria. Patient now has a REVIVAL CLERK whom helps her with activities of daily living including cooking. She has gained a significant amount of weight since last office visit in attributes this to eating much more. Major? Depressive disorder:? Patient continues on mirtazapine 7.5 mg at bedtime. She has moved into a different apartment and has a personal REVIVAL CLERK which has also helped her depression. . .. CVA:? 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 She has recently seen speech language pathologist who recommend her getting a modified barium swallow, seeing a speech language pathologist that this trained in [facility] giving her adaptive devices for communication ([facility] rehab, [facility] rehab? ectt..) and new neurologist for further evaluation.? Family has noticed a difference in her cognition since being treated for her depression. She has followed up with a speech language pathologist in the past and was turned on to now has a tablet for communication, unfortunately does not use the tablet much for communication as she found it difficult to hold and to use. 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 .. HTN:? Blood pressure elevated today in office, have noted weight gain since last office visit..? Otherwise denies any chest discomfort, palpitations, shortness of breath Colonoscopy: Cologuard done in 2020, negative repeat 3 years- NEEDS REPEAT mammo: Had abnormal mammo at [facility] 2023-underwent biopsy with benign findings. Vaccines: Up-to-date with COVID vaccine, tetanus vaccine, considering shingles and flu vaccine. [facility] Medical History Leg cramps Seizure Hypersomnia HTN (hypertension) Right spastic hemiparesis Aphasia as late effect of cerebrovascular accident H/O: CVA (cerebrovascular accident) Seizure cerebral Surgical History History of surgery H/O elbow surgery Family History (Updated 12/12/23 @ 15:04 by Paulo Maldonado PA-C) Father No problems noted. Mother Hypertension Hyperlipidemia Acute CVA (cerebrovascular accident) Son Heart problem Social History Housing: Other Housing Other:: has own apartment Alcohol intake: never Patient Tobacco Use Status: Never used Tobacco e-Cigarette/Vaping Use: Never Used Second Hand Smoke Exposure: No service: No Current occupational status: disabled Cognitive needs: Yes Hearing needs: No Vision needs: Yes Questionnaire PHQ-9 Over the last 2 weeks, how often have you been bothered by any of the following problems? 1. Little interest or pleasure in doing things: not at all 2. Feeling down, depressed, or hopeless: not at all 3. Trouble falling or staying asleep, or sleeping too much: not at all 4. Feeling tired or having little energy: more than half the days 5. Poor appetite or overeating: not at all 6. Feeling bad about yourself - or that you are a failure or have let yourself or your family down: not at all 7. Trouble concentrating on things, such as reading the newspaper or watching television: more than half the days 8. Moving or speaking so slowly that other people could have noticed. Or the opposite - being so fidgety or restless that you have been moving around a lot more than usual: not at all 9. Thoughts that you would be better off or of hurting yourself in some way: not at all Total score: 4 Depression Screening Interpretation: Positive Depression Screening Follow-up: Existing condition Depression Screening Done: Yes 16665 - PHQ-9 Billing: Yes Source: Developed by Drs. Christofer Ruelas, Layla Frye, Ellis Munoz and colleagues, with an educational morales from [employer]. Thrive Questionnaire Date Thrive assessed: 12/12/23 I am a: Patient What is your living situation today?: I have a steady place to live Within the past 12 months, did the food you bought not last and you didn't have the money to get more?: Never true Within the past 12 months, did you worry whether your food would run out before you got money to buy more?: Never true Do you have trouble paying for medicines?: No Do you have trouble getting transportation to medical appointments?: Yes Do you have trouble paying your heating and electricity bill?: No Do you have trouble taking care of your child, family member or friend?: No Do you have trouble with day-to-day activities such as bathing, preparing meals, shopping, managing finances, etc.?: No Are you currently unemployed and looking for a job?: No Are you interested in more education?: No Please select the resources that you would like help with: None Currently or been in a relationship where the following occur: No concerns reported THRIVE Score: 1 AUDIT C Alcohol Use Questionnaire (AUDIT-C) 1. How often do you have a drink containing alcohol?: Never 3. How often do you have six or more drinks on one occasion?: Never Total Score: 0 JOSELYN-7 AMB Questionnaire JOSELYN-7 Date JOSELYN - 7 assessed: 12/12/23 Feeling nervous, anxious, or on edge: 0 = Not at all Not being able to stop or control worryin = More than half the days Worrying too much about different things: 2 = More than half the days Trouble relaxin = Not at all Being so restless that it is hard to sit still: 0 = Not at all Becoming easily annoyed or irritable: 2 = More than half the days Feeling afraid as if something awful might happen: 2 = More than half the days Total JOSELYN-7 score (0-4 normal; 5-9 mild; 10-14 moderate; 15-21 severe): 8 Source: Developed by Drs. Christofer Ruelas, Layla Frye, Ellis Munoz and colleagues, with an educational morales from [employer]. JOSELYN-7 Assessment Billing JOSELYN-7 Assessment Tool: JOSELYN-7 Assessment 21547 Review of Systems Const Denies body aches, Denies chills, Denies excessive sweating, Denies fatigue, Denies fever(s) and Denies headache(s) Eyes Denies blurry vision ENT Denies dysphagia, Denies vertigo, Denies dizziness, Denies headache(s), Denies hearing loss and Denies tinnitus Card Denies chest pain, Denies chest pain with activity, Denies syncope, Denies irregular heart rhythm and Denies dyspnea Resp Denies chest congestion, Denies cough, Denies hemoptysis, Denies dyspnea and Denies wheezing GI Denies abdominal pain, Denies melena, Denies hematochezia, Denies coffee ground emesis, Denies dysphagia, Denies diarrhea, Denies nausea and Denies vomiting Denies urinary frequency, Denies dysuria, Denies urinary hesitancy and Denies urinary urgency Musc Denies arthralgias, Denies limited range of motion, Denies muscle cramps and Denies muscle weakness Skin/Breast Denies rash and Denies skin ulcer Neuro Denies Abnormal speech present, Denies confusion, Denies vertigo, Denies dizziness, Denies syncope, Denies headache(s), Denies memory loss and Denies seizure-like activity Psych Denies anxiety, Denies confusion, Denies depression, Denies memory loss, Denies panic attacks and Denies paranoia Endo Denies excessive sweating, Denies fatigue, Denies flushing, Denies polydipsia and Denies polyuria Aller/Immun Denies wheezing Physical exam (Primary Care) Vital Signs: Last Vital Signs Pulse 72 12/12/23 14:45 BP 130/100 H 12/12/23 15:11 Pulse Ox 99 12/12/23 14:45 Oxygen Delivery Method Room Air 12/12/23 14:45 BMI result Body Mass Index 31.5 Tobacco/Smoking Status: Tobacco use Status Tobacco use date assessed 06/11/23 12/12/23 14:43 Patient Tobacco Use Status Never used Tobacco 12/12/23 14:43 e-Cigarette/Vaping Use Never Used 12/12/23 14:43 PHQ-9: PHQ-9 Score PHQ-9: Total score 4 12/12/23 15:12 Depression Screening Interpretation: Positive Depression Screening Follow-up: Existing condition Thrive Assessment: Date of Thrive Assessment Date Thrive assessed 12/12/23 12/12/23 14:48 Currently or been in a relationship where the following occur: No concerns reported Const General: cooperative, comfortable, no acute distress, alert and awake; No confusion Orientation/consciousness: oriented to person, oriented to place, patient oriented x3 and No confusion HENMT Head: Yes normocephalic Ears: external ears normal and TM's normal bilaterally Face and sinus: No sinus tenderness Mouth: Normal oral and palatal mucosa present and tongue normal Teeth and gingiva: dentition normal and gingiva normal Throat: Yes posterior oropharynx normal, Yes tonsils normal and Yes uvula midline Eyes Conjunctivae: conjunctivae normal Sclerae: sclerae normal Pupils: Equal, round and reactive pupils present EOM: EOMs intact bilaterally Direct Ophthalmoscopy: No no photophobia Neck Neck: Yes no lymphadenopathy, No tender and Yes no JVD Thyroid: Thyroid normal Carotids: no bruits Chest Chest palpation & inspection: no tenderness Resp Effort & Inspection: normal respiratory effort, no audible wheezes, not labored and no stridor Auscultation: no crackles, no rales, no rhonchi and no wheezes Cardio Jugular venous distension: no JVD Rate: regular rate, not bradycardic and not tachycardic Rhythm: regular rhythm Bruits: no carotid bruits Peripheral pulses: Peripheral pulses 2+ throughout GI Inspection: Yes normal to inspection, No abdominal wall ecchymosis and No visible herniation Palpation (GI): Soft to palpation, nontender, no guarding, not rigid and No hepatosplenomegaly present Auscultation: normoactive bowel sounds General: Yes no CVA tenderness Back/Spine/Pelvis Back: no CVA tenderness and No back tenderness Cervical Spine: cervical ROM normal Thoracic/Lumbar Spine: thoracic and lumbar spine normal to inspection, straight leg raise negative bilaterally, No thoraco-lumbar ROM limited and No lumbar spinal tenderness Skin Lesions: no lesions Rashes: no rashes Wounds: no wounds Neuro Other: RIGHT-SIDED HEMIPLEGIA NOTED General: oriented to person, oriented to place, patient oriented x3, CN's II-XI intact bilaterally and No confusion Cranial nerves: Yes Equal, round and reactive pupils present and Yes Normal accommodation reflex present Cognition (Neuro): normal cognition Speech: No Abnormal speech present Gait exam (Neuro): Normal gait present Motor exam (neuro): 5/5 motor strength present throughout Extrem Right upper extremity: full ROM; no cyanosis Left upper extremity: full ROM; no cyanosis Right lower extremity: no edema Left lower extremity: no edema Psych Appearance: grossly normal Mental Status: mental status grossly normal Affect: normal affect Attitude: cooperative Thought process: Normal thought process present Assessment and Plan Assessment & Plan (1) Annual physical exam: Code(s): Z00.00 - Encounter for general adult medical examination without abnormal findings (2) HTN (hypertension): Code(s): I10 - Essential (primary) hypertension Qualifiers: Hypertension type: primary hypertension Qualified Code(s): I10 - Essential (primary) hypertension Plan: Blood pressure today office elevated, she does not regularly monitor blood pressure at home. She denies any headache, chest discomfort or dizziness. She admits to taking her blood pressure medication on a daily basis. Will continue her current dose of antihypertensive medication with goal blood pressure to be below 140/90 (3) Aphasia as late effect of cerebrovascular accident: Code(s): I69.320 - Aphasia following cerebral infarction Plan: Patient with a brain aneurysm in the middle cerebral artery in 2008, has expressive aphasia. USES SIGN> Does have tablet to help communicate though needs adaptive / innovated ways to use the tablet for communication. Now has a REVIVAL CLERK whom helps her with activities of daily living. (4) H/O: CVA (cerebrovascular accident): Comment: Middle cerebral artery aneurysm- stroke Code(s): Z86.73 - Personal history of transient ischemic attack (TIA), and cerebral infarction without residual deficits Plan: history of MCA coiling due a aneurysm and was coiled in 2008 . She is also followed by neurologist (5) MDD (major depressive disorder), recurrent episode, moderate: Code(s): F33.1 - Major depressive disorder, recurrent, moderate Plan: Continues on mirtazapine 7.5 mg which seems to help her depression and appetite. Has gained weight (6) Seizure cerebral: Code(s): G40.909 - Epilepsy, unspecified, not intractable, without status epilepticus Plan: Has not had any recent notable seizures. Continues on carbamazepine 300 b.i.d. (7) Breast calcification, left: Code(s): R92.1 - Mammographic calcification found on diagnostic imaging of breast Plan: As per HPI, patient had breast calcifications on MRI, underwent biopsy with benign findings. (8) HTN (hypertension): Code(s): I10 - Essential (primary) hypertension Qualifiers: Hypertension type: essential hypertension Qualified Code(s): I10 - Essential (primary) hypertension Plan: Patient's blood pressure elevated today in office. Otherwise denies any headache, chest discomfort or dizziness. She will continue her current doses of antihypertensive medication. Advised to monitor blood pressure at home and if consistently above 140/90 will make adjustments in her blood pressure meds. (9) HLD (hyperlipidemia): Code(s): E78.5 - Hyperlipidemia, unspecified Qualifiers: Hyperlipidemia type: unspecified Qualified Code(s): E78.5 - Hyperlipidemia, unspecified Plan: Patient continues on atorvastatin 10 mg. Most recent lipid panel have been stable. Goal LDL is to remain below 100. Orders: Referrals Cologuard Test Z12.11 - Encounter for screening for malignant neoplasm of colon Patient Instructions: Goal: Blood pressure to remain below 140/90, LDL to remain below 100 Barriers: Adherence to physical activity and healthy eating habits Coding Level of Care Code Est Pt Prev Care 40-64y(03617) Diagnoses Annual physical exam Z00.00 Primary hypertension I10 Hypertension type: primary hypertension Aphasia as late effect of cerebrovascular accident I69.320 H/O: CVA (cerebrovascular accident) Z86.73 MDD (major depressive disorder), recurrent episode, moderate F33.1 Seizure cerebral G40.909 Breast calcification, left R92.1 Hyperlipidemia, unspecified hyperlipidemia type E78.5 Hyperlipidemia type: unspecified Additional Codes JOSELYN-7 Assessment Billing - JOSELYN-7 Assessment Tool: JOSELYN-7 Assessment 24877 ([id number])
[2023-12-12 14:45] VITALS: BP 164/104; PULSE 72; O2SAT 99; BMI 31.5
[2023-12-12 15:11] VITALS: BP 130/100
== END 2023-12-12 15:29 | disposition home or self-care (01) ==
PROVIDERS: PCP Physician Assistant; Visit Provider Physician Assistant
DX: Z00.00 Encounter for general adult medical examination without abnormal findings (principal); F33.1 Major depressive disorder, recurrent, moderate; G40.909 Epilepsy, unspecified, not intractable, without status epilepticus; I10 Essential (primary) hypertension; I69.320 Aphasia following cerebral infarction; Z86.73 Personal history of transient ischemic attack (TIA), and cerebral infarction without residual deficits; R92.1 Mammographic calcification found on diagnostic imaging of breast; E78.5 Hyperlipidemia, unspecified

== ENCOUNTER → 2023-12-12 14:36 | Outpatient (BNVA) | payer OTHER, SELFPAY | PROVIDERS: PCP Physician Assistant; Visit Provider Physician Assistant | DX: Z00.01 Encounter for general adult medical examination with abnormal findings (principal); I10 Essential (primary) hypertension; F33.1 Major depressive disorder, recurrent, moderate; G40.909 Epilepsy, unspecified, not intractable, without status epilepticus; R92.1 Mammographic calcification found on diagnostic imaging of breast; E78.5 Hyperlipidemia, unspecified; Z86.73 Personal history of transient ischemic attack (TIA), and cerebral infarction without residual deficits | CPT/HCPCS: 96127; 99396 ==

== ENCOUNTER 2024-01-07 10:24 | Outpatient (REF) | payer OTHER, SELFPAY ==
[2024-01-07 12:48] LABS: Creatinine Urine 372.99 mg/dL; Microalbum/Creatinine Ratio Ur 24.1 ug/mg cr (<30)
[2024-01-07 12:55] LABS: Alanine Aminotransferase 20 U/L (0-31); Albumin Level 4.2 g/dL (3.5-5.0); Alkaline Phosphatase 93 U/L (39-117); Anion Gap 11 (12-20); Aspartate Amino Transferase 24 U/L (5-31); Bilirubin Total 0.3 mg/dL (0.0-1.0); Blood Urea Nitrogen 15 mg/dL (9-16); Carbon Dioxide 27 mmol/L (22-29); Chloride 109 mmol/L (96-108); Cholesterol 205 mg/dL (<200); Estimated Glomerular Filt Rate 60; Glucose Fasting 85 mg/dL (60-99); HDL Cholesterol 71 mg/dL (>40); LDL Cholesterol Calculated 121 mg/dL (<100); Potassium 3.7 mmol/L (3.3-5.1); Sodium 143 mmol/L (135-145); Total Protein 7.3 g/dL (6.5-8.0); Triglycerides 65 mg/dL (<150)
== END 2024-01-07 10:25 | disposition home or self-care (01) ==
LOC: HO.LAB 10:24
PROVIDERS: PCP Physician Assistant; Visit Provider Physician Assistant
DX: I10 Essential (primary) hypertension (principal); Z86.73 Personal history of transient ischemic attack (TIA), and cerebral infarction without residual deficits
CPT/HCPCS: 36415; 80053; 80061; 82043; 82570

== ENCOUNTER 2024-04-14 15:08 | Outpatient (AMB) | payer OTHER, SELFPAY ==
[2024-04-14 15:17] VITALS: BP 158/100; PULSE 76; TEMP 36.3; O2SAT 97; BMI 32.2
--- NOTE | 2024-04-14 15:17 | A.OFFPC_ITS ---
Vital Signs 04/14/24 15:17 Height 5 ft 6 in Weight 199 lb 8 oz BMI 32.2 BP 158/100 H Blood Pressure Location Lt brachial Position Sitting Pulse 76 Pulse Source Pulse Oximeter Temp 97.3 F Temp Source Temporal Artery Scan Pulse Oximetry (%) 97 Oxygen Delivery Method Room Air Intake Visit Reasons: f/u HTN/ HLD/ CVA Commissioned Security Officer Required: No Accompanied by: proxy Allergies No Known Allergies Allergy (Verified 04/14/24 15:31) Medication List - Last Reconciled 04/14/24 by Paulo Maldonado PA-C amlodipine 10 mg PO DAILY 90 days atorvastatin 10 mg PO DAILY 90 days blood pressure test kit-medium As directed carbamazepine ER 300 mg PO BID cholecalciferol (vitamin D3) 50 mcg PO DAILY 90 days clopidogrel 75 mg PO DAILY diaper,brief,adult,disposable (Briefs Small) As directed famotidine 20 mg PO DAILY 90 days labetalol 400 mg (2 x 200 mg) PO BID lisinopril 40 mg PO DAILY 90 days melatonin 5 mg PO BEDTIME memantine 10 mg PO QPM 90 days mirtazapine 7.5 mg PO BEDTIME 90 days Tobacco use date assessed: 04/14/24 Dental Screening Dental Screen Date: 06/11/23 HPI f/u HTN/ HLD/ CVA HPI Details Patient is a 53 year-old female here today?for follow-up visit . ? Patient has a past medical history significant for hypertension, MDD, h/o CVA complicated by dysarthria. Concern--> patient and family have noticed tripping during ambulation. She seems to have a bit of foot drop in her right foot and ankle. They are asking for a possible right ankle AFO to help with ambulation and decreased risk of falling Patient now has a CREDIT UNION MANAGER whom helps her with activities of daily living including cooking. She has gained a significant amount of weight since last office visit in attributes this to eating much more. Major? Depressive disorder:? Patient continues on mirtazapine 7.5 mg at bedtime. She has moved into a different apartment and has a personal CREDIT UNION MANAGER which has also helped her depression. . .. CVA:? 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 She has recently seen speech language pathologist who recommend her getting a modified barium swallow, seeing a speech language pathologist that this trained in [facility] giving her adaptive devices for communication ([facility] rehab, [facility] rehab? ectt..) and new neurologist for further evaluation.? Family has noticed a difference in her cognition since being treated for her depression. She has followed up with a speech language pathologist in the past and was turned on to now has a tablet for communication, unfortunately does not use the tablet much for communication as she found it difficult to hold and to use. 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 .. HTN:? Blood pressure elevated today in office, have noted weight gain since last office visit..? She reports being adherent to all of her blood pressure medication. Otherwise denies any chest discomfort, palpitations, shortness of breath [facility] Medical History Leg cramps Seizure Hypersomnia HTN (hypertension) Right spastic hemiparesis Aphasia as late effect of cerebrovascular accident H/O: CVA (cerebrovascular accident) Seizure cerebral Surgical History History of surgery H/O elbow surgery Family History Father No problems noted. Mother Hypertension Hyperlipidemia Acute CVA (cerebrovascular accident) Son Heart problem Social History Housing: Other Housing Other:: has own apartment Alcohol intake: never Patient Tobacco Use Status: Never used Tobacco e-Cigarette/Vaping Use: Never Used Second Hand Smoke Exposure: No service: No Current occupational status: disabled Cognitive needs: Yes Hearing needs: No Vision needs: Yes Questionnaire Thrive Questionnaire Date Thrive assessed: 04/14/24 JOSELYN-7 AMB Questionnaire JOSELYN-7 Date JOSELYN - 7 assessed: 12/12/23 Source: Developed by Drs. Christofer Ruelas, Layla Frye, Ellis Munoz and colleagues, with an educational morales from [employer]. Review of Systems Const Denies headache(s) Eyes Denies loss of vision ENT Denies vertigo, Denies dizziness, Denies headache(s) and Denies sore throat Card Denies chest pain, Denies leg edema and Denies lightheadedness Resp Denies cough, Denies hemoptysis and Denies wheezing GI Denies abdominal pain, Denies melena, Denies constipation, Denies diarrhea and Denies vomiting Denies urinary frequency, Denies dysuria and Denies urinary urgency Musc Denies arthralgias, Denies joint swelling, Denies numbness and Denies tingling Neuro Denies Abnormal speech present, Denies behavioral changes, Denies vertigo, Denies dizziness, Denies headache(s), Denies loss of vision, Denies memory loss, Denies numbness and Denies tingling Psych Denies anxiety, Denies behavioral changes, Denies depression, Denies memory loss and Denies panic attacks Alcon/Lymph Denies easy bleeding and Denies easy bruising Aller/Immun Denies wheezing Physical exam (Primary Care) Vital Signs: Last Vital Signs Temp 97.3 F 04/14/24 15:17 Pulse 76 04/14/24 15:17 BP 158/100 H 04/14/24 15:17 Pulse Ox 97 04/14/24 15:17 Oxygen Delivery Method Room Air 04/14/24 15:17 BMI result Body Mass Index 32.2 Tobacco/Smoking Status: Tobacco use Status Tobacco use date assessed 04/14/24 04/14/24 15:22 Patient Tobacco Use Status Never used Tobacco 04/14/24 15:22 e-Cigarette/Vaping Use Never Used 04/14/24 15:22 Thrive Assessment: Date of Thrive Assessment Date Thrive assessed 04/14/24 04/14/24 15:22 Const General: healthy appearing, no acute distress, alert and awake Nutritional Appearance: well nourished Orientation/consciousness: oriented to person, oriented to place and oriented to time HENMT Ears: TM's normal bilaterally General nose exam: Normal nasal mucous membranes and turbinates present Eyes Conjunctivae: conjunctivae normal Sclerae: sclerae normal Pupils: Equal, round and reactive pupils present Neck Neck: Yes no lymphadenopathy and Yes no JVD Thyroid: Thyroid normal Carotids: no bruits Resp Effort & Inspection: normal respiratory effort and not tachypneic Auscultation: no crackles, no rales, no rhonchi and no wheezes Cardio Rate: regular rate Rhythm: regular rhythm Heart sounds: no murmurs and normal S1 and S2 GI Palpation (GI): Soft to palpation, nontender, no hepatomegaly and no splenomegaly Auscultation: normal bowel sounds Skin General skin exam: no rashes or lesions noted and dry skin Neuro Other: RIGHT UPPER EXTREMITY AND LOWER EXTREMITY DECREASED MOTOR STRENGTH. General: oriented to person, oriented to place and oriented to time Cranial nerves: Yes Equal, round and reactive pupils present Speech: No Abnormal speech present Gait exam (Neuro): Normal gait present Motor exam (neuro): no tremor noted Extrem Right upper extremity: full ROM Left upper extremity: full ROM Right lower extremity: full ROM; no edema Left lower extremity: full ROM; no edema Psych Mental Status: mental status grossly normal Speech and movement: Normal speech and movement present Affect: normal affect Attitude: cooperative Thought process: Normal thought process present Office Procedures Flu Questionnaire Does the patient have a severe egg allergy?: No Does the patient have severe life threatening allergies?: No Does the patient have a fever or illness today?: No Has the patient ever had Guillain-[place] Syndrome?: No Has the patient ever had any past reaction to a flu shot?: No Immunizations Fluarix Triv 6022-0603 (PF) 45 mcg (15 mcg x 3)/0.5 mL IM syringe Performing Provider: Paulo Maldonado PA-C [place] [facility] Administered by: LUIS CARLOS Mohan on 04/14/24 15:26 Dose Route Admin Location Dispensed Lot Number Expiration Date [id number][NOTE 3] Lead Generation Specialist 0.5 mL IM Left Deltoid 0.5 mL [id number] 09/15/24 40631-919-04 [employer] VIS Given Date VIS Provided VIS Publication Date 04/14/24 Single Vaccine 20 Eligibility Eligibility Date Funding Source Not [facility] Eligible 04/14/24 Private Coding Level of Care Code Est Pt Level 4 (06927) Diagnoses Essential hypertension I10 Hypertension type: essential hypertension Hyperlipidemia, unspecified hyperlipidemia type E78.5 Hyperlipidemia type: unspecified H/O: CVA (cerebrovascular accident) Z86.73 Seizure cerebral G40.909 MDD (major depressive disorder), recurrent episode, moderate F33.1 Acquired right foot drop M21.371 Assessment & Plan Assessment & Plan (1) HTN (hypertension): Code(s): I10 - Essential (primary) hypertension Category: Medical Qualifiers: Hypertension type: essential hypertension Qualified Code(s): I10 - Essential (primary) hypertension Plan: Patient's blood pressure elevated today in office. Does not normally check her blood pressure at home. They will start trying to do so. Has multiple antihypertensive medications and she reports she is adherent to these meds as she gets bubble packs at home. Will do diligent home blood pressure monitoring with goal blood pressure to be below 140/90. Otherwise patient is asymptomatic Will consider adding hydrochlorothiazide (2) HLD (hyperlipidemia): Code(s): E78.5 - Hyperlipidemia, unspecified Category: Medical Qualifiers: Hyperlipidemia type: unspecified Qualified Code(s): E78.5 - Hyperlipidemia, unspecified Plan: Patient continues on atorvastatin 10 mg. Most recent lipid panel showing reasonably controlled total cholesterol and LDL. (3) H/O: CVA (cerebrovascular accident): Comment: Middle cerebral artery aneurysm- stroke Code(s): Z86.73 - Personal history of transient ischemic attack (TIA), and cerebral infarction without residual deficits Category: Medical Plan: As per HPI patient had a CVA years ago which left her with right-sided hemiplegia. Unfortunately has been noting some right foot and ankle weakness and foot drop. Family interested in getting fitted for an AFO to help her with ambulation and reducing risk of falling due to tripping (4) Seizure cerebral: Code(s): G40.909 - Epilepsy, unspecified, not intractable, without status epilepticus Category: Medical Plan: Continues on anti seizure protocol with carbamazepine. Has not had any seizures activity in many years. (5) MDD (major depressive disorder), recurrent episode, moderate: Code(s): F33.1 - Major depressive disorder, recurrent, moderate Category: Medical Plan: Patient continues on mirtazapine 7.5 mg at bedtime which seems to have worked well for her (6) Acquired right foot drop: Code(s): M21.371 - Foot drop, right foot Category: Medical Plan: As above she has developed weakness in her right ankle and foot and seems to have to foot drop likely secondary to her CVA. Will likely benefit from an AFO to help reduce risk of tripping and falling. Orders: Orders 2 Lipid Panel 04/14/24 E78.5 - Hyperlipidemia, unspecified Microalbumin, Random (w Creat) 04/14/24 I10 - Essential (primary) hypertension Complete Blood Count no Diff 04/14/24 E78.5 - Hyperlipidemia, unspecified Comprehensive [place]. Panel Fast 04/14/24 E78.5 - Hyperlipidemia, unspecified Influenza [id number] Immunization 04/14/24 Z23 - Encounter for immunization PT Evaluation and Treatment Today M21.371 - Foot drop, right foot Medications: New [RIGHT ANKLE AFO] As directed 1 ea 0RF G81.11 - Spastic hemiplegia affecting right dominant side, M21.371 - Foot drop, right foot, Z86.73 - Personal history of transient ischemic attack (TIA), and cerebral infarction without residual deficits
--- OUTSIDE RECORDS SUMMARY | 2024-04-14 19:18 | XMS_ITS | Clinical Summary ---
Author Organization [facility] Address [address] [place] [address] Care Team Providers Care Charge Nurse Name Role Phone Unavailable Primary Care Provider Unavailabl e Social History Tobacco Use Types Packs/Day Years Used Date Smoking Tobacco: Never Assessed Sex and Gender Information Value Date Recorded Sex Assigned at Not on file Gender Identity Not on file Sexual Orientation Not on file Plan of Treatment Health Maintenance Due Date Last Done Comments Hepatitis C Virus Screening 1968 HIV Screening 1981 DTaP/Tdap/Td Vaccines (1 - Tdap) 05/31/1987 Hepatitis B Vaccines (1 of 3 - 19+ 3-dose series) 05/31/1987 Pneumococcal Vaccines 50+ (1 of 1 - PCV) 2018 Zoster (Shingles) Vaccine (1 of 2) 2018 COVID-19 Vaccine ( - 2023-2 5 season) 2023 Pneumococcal Vaccine: Pediat oscar (0-5 Years) and At-Risk Patients (6 to 49 Years) Aged Out No longer eligible b ased on patient's age to complete this topic
== END 2024-04-14 16:05 | disposition home or self-care (01) ==
PROVIDERS: PCP Physician Assistant; Visit Provider Physician Assistant
DX: Z23 Encounter for immunization (principal)

== ENCOUNTER → 2024-04-14 15:08 | Outpatient (BNVA) | payer OTHER, SELFPAY | PROVIDERS: PCP Physician Assistant; Visit Provider Physician Assistant | DX: Z23 Encounter for immunization (principal); I10 Essential (primary) hypertension; E78.5 Hyperlipidemia, unspecified; G40.909 Epilepsy, unspecified, not intractable, without status epilepticus; F33.1 Major depressive disorder, recurrent, moderate; M21.371 Foot drop, right foot; Z86.73 Personal history of transient ischemic attack (TIA), and cerebral infarction without residual deficits | CPT/HCPCS: 90471; 90656; 99212 ==

== ENCOUNTER 2024-06-06 15:19 | Outpatient (AMB) | payer OTHER, SELFPAY ==
[2024-06-06 15:32] VITALS: BP 148/100; PULSE 77; TEMP 36.4; O2SAT 99; BMI 32.4
--- NOTE | 2024-06-06 15:32 | A.OFFPC_ITS ---
Vital Signs 06/06/24 15:32 Height 5 ft 6 in Weight 200 lb 9.93 oz BMI 32.4 BP 148/100 H Blood Pressure Location Lt brachial Position Sitting Pulse 77 Pulse Source Pulse Oximeter Temp 97.5 F Temp Source Temporal Artery Scan Pulse Oximetry (%) 99 Oxygen Delivery Method Room Air Intake Visit Reasons: [facility] D/C 05/28 Intake Note: Patient is here to follow-up after a visit the emergency department at [facility] on 05/28/2024 Drugless Doctor Required: No Accompanied by: LENS POLISHER HAND Allergies No Known Allergies Allergy (Verified 06/06/24 15:39) Tobacco use date assessed: 06/06/24 Dental Screening Dental Screen Date: 06/06/24 Did you have a dental visit in the last 12 months?: No Did you have a dental problem in the last 6 months where you did not have access to dental care?: No HPI HPI Comments History of Present Illness Details 54 y/o female patient who presents to [facility] today for HDF. Pt was admitted at [facility] on 05/28/24 for right lower extremity pain. DVT was negative on Doppler U/S. Reports that pain is located mainly at the knee radiating down to the lower Leg. She was given Gabapentin, reports helping with pain. [facility] Medical History (Updated 06/06/24 @ 16:25 by Jocelyne Dong NP) Arthralgia Pain in right lower leg Leg cramps Seizure Hypersomnia HTN (hypertension) Right spastic hemiparesis Aphasia as late effect of cerebrovascular accident H/O: CVA (cerebrovascular accident) Seizure cerebral Surgical History History of surgery H/O elbow surgery Family History Father No problems noted. Mother Hypertension Hyperlipidemia Acute CVA (cerebrovascular accident) Son Heart problem Social History Housing: Other Housing Other:: has own apartment Alcohol intake: never Patient Tobacco Use Status: Never used Tobacco e-Cigarette/Vaping Use: Never Used Second Hand Smoke Exposure: No service: No Current occupational status: disabled Cognitive needs: Yes Hearing needs: No Vision needs: Yes Questionnaire Thrive Questionnaire Date Thrive assessed: 04/14/24 JOSELYN-7 AMB Questionnaire JOSELYN-7 Date JOSELYN - 7 assessed: 12/12/23 Source: Developed by Drs. Christofer Ruelas, Layla Frye, Ellis Munoz and colleagues, with an educational morales from [employer]. Physical exam (Primary Care) Vital Signs: Last Vital Signs Temp 97.5 F 06/06/24 15:32 Pulse 77 06/06/24 15:32 BP 148/100 H 06/06/24 15:32 Pulse Ox 99 06/06/24 15:32 Oxygen Delivery Method Room Air 06/06/24 15:32 BMI result Body Mass Index 32.4 Tobacco/Smoking Status: Tobacco use Status Tobacco use date assessed 06/06/24 06/06/24 15:48 Patient Tobacco Use Status Never used Tobacco 06/06/24 15:48 e-Cigarette/Vaping Use Never Used 06/06/24 15:48 Thrive Assessment: Date of Thrive Assessment Date Thrive assessed 04/14/24 06/06/24 15:48 Const General: no acute distress Orientation/consciousness: patient oriented x3 Limitations: ambulation with cane Neuro Other: Right sided weakness. Walks with a Cane. General: patient oriented x3 Extrem Right lower extremity: knee Details: tenderness Location: of the patella Details: medially and laterally, swelling Location: of the patella and abnormal ROM Details: pain with active ROM during and pain with passive ROM during; no unusual warmth Psych Other: Aphasia, speech slowed. Attitude: cooperative Coding Level of Care Code Est Pt Level 4 (51379) Diagnoses Pain in right lower leg M79.661 Arthralgia of right knee M25.561 Joint pain location: knee Laterality: right Time Spent (min) 20 Assessment & Plan Assessment & Plan (1) Pain in right lower leg: Code(s): M79.661 - Pain in right lower leg Category: Medical Plan: Wrapped Knee with Yunior Bandage. Provided Knee Brace. Rest joint Ice/Hot. (2) Arthralgia: Code(s): M25.50 - Pain in unspecified joint Category: Medical Qualifiers: Joint pain location: knee Laterality: right Qualified Code(s): M25.561 - Pain in right knee Plan: Wrapped Knee with Yunior Bandage. Provided Knee Brace. Rest joint Ice/Hot. Orders: Orders PT Evaluation and Treatment Today M25.561 - Pain in right knee, M79.661 - Pain in right lower leg Medications: New prednisone 40 mg (2 x 20 mg) PO DAILY 5 days 10 tabs 0RF M25.561 - Pain in rig ht knee, M79.661 - Pain in right lower leg gabapentin 300 mg PO BID 14 days 28 caps 0RF M25.561 - Pain in right knee
--- OUTSIDE RECORDS SUMMARY | 2024-06-06 17:18 | XMS_ITS | Clinical Summary ---
Author Organization [facility] Address [address] [place] [address] Care Team Providers Care Jute Bag Sewer Name Role Phone Unavailable Primary Care Provider [...]
== END 2024-06-06 16:24 | disposition home or self-care (01) ==
LOC: HO.HMCH 15:20
PROVIDERS: PCP Physician Assistant; Visit Provider Nurse Practitioner Family
DX: M79.661 Pain in right lower leg (principal); M25.561 Pain in right knee

== ENCOUNTER → 2024-06-06 15:19 | Outpatient (BNVA) | payer OTHER, SELFPAY | PROVIDERS: PCP Physician Assistant; Visit Provider Nurse Practitioner Family | DX: M79.661 Pain in right lower leg (principal); M25.561 Pain in right knee | CPT/HCPCS: 99212 ==

== ENCOUNTER 2024-06-18 09:55 | Outpatient (AMB) | payer OTHER, SELFPAY ==
[2024-06-18 10:21] VITALS: BP 150/102; PULSE 77; TEMP 36.2; O2SAT 98; BMI 32.2
--- NOTE | 2024-06-18 10:21 | A.OFFPC_ITS ---
Vital Signs 06/18/24 10:21 Height 5 ft 6 in Weight 199 lb 4.766 oz BMI 32.2 BP 150/102 H Blood Pressure Location Lt brachial Position Sitting Pulse 77 Pulse Source Pulse Oximeter Temp 97.1 F Temp Source Temporal Artery Scan Pulse Oximetry (%) 98 Oxygen Delivery Method Room Air Intake Visit Reasons: f/u htn/ Scooter need Director Stars Required: No Accompanied by: Son Allergies No Known Allergies Allergy (Verified 06/18/24 10:39) Medication List - Last Reconciled 06/18/24 by Paulo Maldonado PA-C amlodipine 10 mg PO DAILY 90 days atorvastatin 10 mg PO DAILY 90 days blood pressure test kit-medium As directed carbamazepine ER 300 mg PO BID cholecalciferol (vitamin D3) 50 mcg PO DAILY 90 days clopidogrel 75 mg PO DAILY diaper,brief,adult,disposable (Briefs Small) As directed famotidine 20 mg PO DAILY 90 days gabapentin 300 mg PO BID labetalol 400 mg (2 x 200 mg) PO BID lisinopril 40 mg PO DAILY 90 days melatonin 5 mg PO BEDTIME memantine 10 mg PO QPM 90 days mirtazapine 7.5 mg PO BEDTIME 90 days prednisone 40 mg (2 x 20 mg) PO DAILY 5 days [RIGHT ANKLE AFO As directed] Tobacco use date assessed: 06/06/24 Dental Screening Dental Screen Date: 06/06/24 HPI f/u htn/ Scooter need HPI Details Patient is a 53 year-old female here today?for follow-up visit . ? Patient has a past medical history significant for hypertension, MDD, h/o CVA complicated by dysarthria. Concern--> patient and family have noticed tripping during ambulation. She seems to have a bit of foot drop in her right foot and ankle. She has been seen at a local ER for right leg pain and underwent a ultrasound which was negative for DVT. She reports most of her pain is in right knee though has no x-ray has been done. Will send for x-ray. She does have a knee brace she has been using that seems to be helpful. They are requesting an order for electric scooter to help her mobility. She will need physical therapy evaluation for electric scooter and family understands. Major? Depressive disorder:? Patient continues on mirtazapine 7.5 mg at bedtime. She has moved into a different apartment and has a personal [employer] which has also helped her depression. . .. CVA:? 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 She has recently seen speech language pathologist who recommend her getting a modified barium swallow, seeing a speech language pathologist that this trained in [facility] giving her adaptive devices for communication ([facility] rehab, [facility] rehab? ectt..) and new neurologist for further evaluation.? Family has noticed a difference in her cognition since being treated for her depression. She has followed up with a speech language pathologist in the past and was turned on to now has a tablet for communication, unfortunately does not use the tablet much for communication as she found it difficult to hold and to use. 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 .. HTN:? Blood pressure elevated today in office..? She reports being adherent to all of her blood pressure medication. Otherwise denies any chest discomfort, palpitations, shortness of breath PLAN: Will add on hydrochlorothiazide 12.5 mg for better blood pressure control . [facility]LY [facility], [facility] Medical History (Updated 06/18/24 @ 16:34 by Paulo Maldonado PA-C) Arthralgia Pain in right lower leg Leg cramps Seizure Hypersomnia Right spastic hemiparesis Aphasia as late effect of cerebrovascular accident H/O: CVA (cerebrovascular accident) Seizure cerebral Surgical History History of surgery H/O elbow surgery Family History Father No problems noted. Mother Hypertension Hyperlipidemia Acute CVA (cerebrovascular accident) Son Heart problem Social History Housing: Other Housing Other:: has own apartment Alcohol intake: never Patient Tobacco Use Status: Never used Tobacco e-Cigarette/Vaping Use: Never Used Second Hand Smoke Exposure: No service: No Current occupational status: disabled Cognitive needs: Yes Hearing needs: No Vision needs: Yes Questionnaire PHQ-9 Over the last 2 weeks, how often have you been bothered by any of the following problems? 1. Little interest or pleasure in doing things: not at all 2. Feeling down, depressed, or hopeless: not at all 3. Trouble falling or staying asleep, or sleeping too much: not at all 4. Feeling tired or having little energy: not at all 5. Poor appetite or overeating: not at all 6. Feeling bad about yourself - or that you are a failure or have let yourself or your family down: not at all 7. Trouble concentrating on things, such as reading the newspaper or watching television: not at all 8. Moving or speaking so slowly that other people could have noticed. Or the opposite - being so fidgety or restless that you have been moving around a lot more than usual: not at all 9. Thoughts that you would be better off or of hurting yourself in some way: not at all Total score: 0 Depression Screening Interpretation: Negative Depression Screening Done: Yes 30614 - PHQ-9 Billing: Yes Source: Developed by Drs. Christofer Ruelas, Layla Frye, Ellis Munoz and colleagues, with an educational morales from [employer]. Thrive Questionnaire Date Thrive assessed: 04/14/24 AUDIT C Alcohol Use Questionnaire (AUDIT-C) 1. How often do you have a drink containing alcohol?: Never 3. How often do you have six or more drinks on one occasion?: Never Total Score: 0 JOSELYN-7 AMB Questionnaire JOSELYN-7 Date JOSELYN - 7 assessed: 06/18/24 Feeling nervous, anxious, or on edge: 0 = Not at all Not being able to stop or control worryin = Not at all Worrying too much about different things: 0 = Not at all Trouble relaxin = Not at all Being so restless that it is hard to sit still: 0 = Not at all Becoming easily annoyed or irritable: 0 = Not at all Feeling afraid as if something awful might happen: 0 = Not at all Total JOSELYN-7 score (0-4 normal; 5-9 mild; 10-14 moderate; 15-21 severe): 0 Source: Developed by Drs. Christofer Ruelas, Layla Frye, Ellis Munoz and colleagues, with an educational morales from [employer]. JOSELYN-7 Assessment Billing JOSELYN-7 Assessment Tool: JOSELYN-7 Assessment 95930 Review of Systems Const Denies headache(s) Eyes Denies loss of vision ENT Denies vertigo, Denies dizziness, Denies headache(s) and Denies sore throat Card Denies chest pain, Denies leg edema and Denies lightheadedness Resp Denies cough, Denies hemoptysis and Denies wheezing GI Denies abdominal pain, Denies melena, Denies constipation, Denies diarrhea and Denies vomiting Denies urinary frequency, Denies dysuria and Denies urinary urgency Musc Denies arthralgias, Denies joint swelling, Denies numbness and Denies tingling Neuro Denies Abnormal speech present, Denies behavioral changes, Denies vertigo, Denies dizziness, Denies headache(s), Denies loss of vision, Denies memory loss, Denies numbness and Denies tingling Psych Denies anxiety, Denies behavioral changes, Denies depression, Denies memory loss and Denies panic attacks Alcon/Lymph Denies easy bleeding and Denies easy bruising Aller/Immun Denies wheezing Physical exam (Primary Care) Vital Signs: Last Vital Signs Temp 97.1 F 06/18/24 10:21 Pulse 77 06/18/24 10:21 BP 150/102 H 06/18/24 10:21 Pulse Ox 98 06/18/24 10:21 Oxygen Delivery Method Room Air 06/18/24 10:21 BMI result Body Mass Index 32.2 Tobacco/Smoking Status: Tobacco use Status Tobacco use date assessed 06/06/24 06/18/24 10:22 Patient Tobacco Use Status Never used Tobacco 06/18/24 10:22 e-Cigarette/Vaping Use Never Used 06/18/24 10:22 PHQ-9: PHQ-9 Score PHQ-9: Total score 0 06/18/24 16:32 Depression Screening Interpretation: Negative Thrive Assessment: Date of Thrive Assessment Date Thrive assessed 04/14/24 06/18/24 10:22 Const General: healthy appearing, no acute distress, alert and awake Nutritional Appearance: well nourished Orientation/consciousness: oriented to person, oriented to place and oriented to time HENMT Ears: TM's normal bilaterally General nose exam: Normal nasal mucous membranes and turbinates present Eyes Conjunctivae: conjunctivae normal Sclerae: sclerae normal Pupils: Equal, round and reactive pupils present Neck Neck: Yes no lymphadenopathy and Yes no JVD Thyroid: Thyroid normal Carotids: no bruits Resp Effort & Inspection: normal respiratory effort and not tachypneic Auscultation: no crackles, no rales, no rhonchi and no wheezes Cardio Rate: regular rate Rhythm: regular rhythm Heart sounds: no murmurs and normal S1 and S2 GI Palpation (GI): Soft to palpation, nontender, no hepatomegaly and no splenomegaly Auscultation: normal bowel sounds Skin General skin exam: no rashes or lesions noted and dry skin Neuro Other: RIGHT UPPER EXTREMITY AND LOWER EXTREMITY DECREASED MOTOR STRENGTH. General: oriented to person, oriented to place and oriented to time Cranial nerves: Yes Equal, round and reactive pupils present Speech: No Abnormal speech present Gait exam (Neuro): Normal gait present Motor exam (neuro): no tremor noted Extrem Right upper extremity: full ROM Left upper extremity: full ROM Right lower extremity: full ROM; no edema Left lower extremity: full ROM; no edema Psych Mental Status: mental status grossly normal Speech and movement: Normal speech and movement present Affect: normal affect Attitude: cooperative Thought process: Normal thought process present Coding Level of Care Code Est Pt Level 4 (08488) Diagnoses Chronic pain of right knee M25.561; G89.29 Chronicity: chronic Right spastic hemiparesis G81.11 Essential hypertension I10 Hypertension type: essential hypertension Additional Codes JOSELYN-7 Assessment Billing - JOSELYN-7 Assessment Tool: JOSELYN-7 Assessment 71780 ([id number]) PHQ-9 - 05334 - PHQ-9 Billing: Yes ([id number]) Assessment & Plan Assessment & Plan (1) Right knee pain: Code(s): M25.561 - Pain in right knee Category: Medical Qualifiers: Chronicity: chronic Qualified Code(s): M25.561 - Pain in right knee; G89.29 - Other chronic pain Plan: As per HPI patient has been having right knee pain to which has been causing her ambulation issues. She does have right-sided hemiplegia due to her previous brain stroke. She does ambulate with a cane though does have times of imbalance. Will try to send for right knee x-ray to evaluate for an osteoarthritis issue (2) Right spastic hemiparesis: Comment: s/p Left MCA infarct in 2009 , s/p aneurysmal rupture ( M1) Code(s): G81.11 - Spastic hemiplegia affecting right dominant side Category: Medical Plan: As per HPI, patient has right-sided hemiparesis secondary to her brain aneurysm surgery. She is ambulating with a cane for assistance. She has been noted to have some weakness and issues with her balance. Family asking for electric scooter to help her with her mobility. Will refer to [facility] physical therapy for evaluation for electric scooter Family also interested having patient return back to speech therapy to help her with her communication. (3) HTN (hypertension): Code(s): I10 - Essential (primary) hypertension Category: Medical Qualifiers: Hypertension type: essential hypertension Qualified Code(s): I10 - Essential (primary) hypertension Plan: Patient's blood pressure elevated in office today. Will add on hydrochlorothiazide 12.5 mg for better blood pressure control. Goal blood pressure is to be below 140/90 Orders: Orders PT Evaluation and Treatment 06/06/24 M25.561 - Pain in right knee, M79.661 - Pain in right lower leg, Z86.73 - Personal history of transient ischemic attack (TIA), and cerebral infarction without residual deficits XR knee RT 3V 06/18/24 G89.29 - Other chronic pain, M25.561 - Pain in right knee Referrals Speech and Hearing Referral I69.320 - Aphasia following cerebral infarction Medications: New hydrochlorothiazide 12.5 mg PO DAILY 90 tabs 1RF 90 days I10 - Essential (primary) hypertension
--- OUTSIDE RECORDS SUMMARY | 2024-06-18 11:22 | XMS_ITS | Clinical Summary ---
Author Organization [facility] Address [address] [place] [address] Care Team Providers Care Orthopedic Physician Assistant Name Role Phone Unavailable Primary Care Provider [...]
== END 2024-06-18 11:22 | disposition home or self-care (01) ==
PROVIDERS: PCP Physician Assistant; Visit Provider Physician Assistant
DX: M25.561 Pain in right knee (principal); G89.29 Other chronic pain; G81.11 Spastic hemiplegia affecting right dominant side; I10 Essential (primary) hypertension

== ENCOUNTER → 2024-06-18 09:55 | Outpatient (BNVA) | payer OTHER, SELFPAY | PROVIDERS: PCP Physician Assistant; Visit Provider Physician Assistant | DX: M25.561 Pain in right knee (principal); G89.29 Other chronic pain; G81.11 Spastic hemiplegia affecting right dominant side; I10 Essential (primary) hypertension | CPT/HCPCS: 96127; 99212 ==

== ENCOUNTER 2024-06-27 14:23 | Outpatient (REF) | payer OTHER, SELFPAY ==
--- NOTE | ~2024-06-27 | XR_ITS ---
EXAMINATION: XR KNEE, RIGHT CLINICAL INFORMATION: M25.561 - Pain in right knee COMPARISON: None available. TECHNIQUE: Four views of the right knee. FINDINGS: No fracture, dislocation, or suspicious bone lesion. Normal alignment. Mild degenerative changes noted in all 3 compartments with minimal marginal osteophytic spurring. There is no abnormal patellar tilt. There is a large suprapatellar joint effusion. Soft tissues otherwise appear normal. XR/XR knee RT 3V IMPRESSION: 1. No acute bony abnormalities. 2. Large joint effusion. 3. Mild tricompartmental degenerative arthritis. Electronically signed by: Valentin Lovell MD 06/27/2024 02:51 PM EDT
--- OUTSIDE RECORDS SUMMARY | 2024-06-27 14:44 | XMS_ITS | Clinical Summary ---
Author Organization [facility] Address [address] [place] [address] Care Team Providers Care Ball Holder Name Role Phone Unavailable Primary Care Provider [...]
== END 2024-06-27 14:24 | disposition home or self-care (01) ==
LOC: HO.XRAY 14:23
PROVIDERS: PCP Physician Assistant; Visit Provider Physician Assistant
DX: M25.561 Pain in right knee (principal); G89.29 Other chronic pain
CPT/HCPCS: 73562

== ENCOUNTER → 2024-06-27 14:24 | Outpatient (BNV) | payer OTHER, SELFPAY | PROVIDERS: PCP Physician Assistant; Visit Provider Radiology Diagnostic Radiology | DX: M17.11 Unilateral primary osteoarthritis, right knee (principal); M25.461 Effusion, right knee | CPT/HCPCS: 73562 ==

== ENCOUNTER 2024-08-12 09:12 | Outpatient (AMB) | payer OTHER, SELFPAY ==
--- NOTE | 2024-08-12 09:13 | A.OFFVIS_ITS ---
Vital Signs 08/12/24 09:14 Height 5 ft 6 in Weight 199 lb BMI 32.1 Intake Visit Reasons: Right knee pain and giving way Intake Note: Mulu is a 54 year old female who presents with complaints of progressively worsening right knee pain and giving way. She describes her pain as sharp in nature. Most of the pain is along the medial aspect of her knee. The patient states that she did fall several months ago. Since that time her symptoms have gotten worse. She has failed the last 6 weeks of conservative treatment. She has tried Tylenol and gabapentin which gave her minimal relief. She states that her right knee will give out several times per day. She has tried physical therapy exercises which aggravated her pain. Allergies No Known Allergies Allergy (Verified 08/12/24 09:14) Medication List - Last Reviewed 08/12/24 by AMY Moon amlodipine 10 mg PO DAILY 90 days atorvastatin 10 mg PO DAILY 90 days blood pressure test kit-medium As directed carbamazepine ER 300 mg PO BID cholecalciferol (vitamin D3) 50 mcg PO DAILY 90 days clopidogrel 75 mg PO DAILY diaper,brief,adult,disposable (Briefs Small) As directed famotidine 20 mg PO DAILY 90 days gabapentin 300 mg PO BID hydrochlorothiazide 12.5 mg PO DAILY 90 days labetalol 400 mg (2 x 200 mg) PO BID lisinopril 40 mg PO DAILY 90 days melatonin 5 mg PO BEDTIME memantine 10 mg PO QPM 90 days mirtazapine 7.5 mg PO BEDTIME 90 days [RIGHT ANKLE AFO As directed] [facility] Medical History (Updated 08/12/24 @ 09:32 by Damon Vazquez MD) Arthralgia Pain in right lower leg Leg cramps Seizure Hypersomnia Right spastic hemiparesis Aphasia as late effect of cerebrovascular accident H/O: CVA (cerebrovascular accident) Seizure cerebral Surgical History History of surgery H/O elbow surgery Family History Father No problems noted. Mother Hypertension Hyperlipidemia Acute CVA (cerebrovascular accident) Son Heart problem Social History Housing: Other Housing Other:: has own apartment Alcohol intake: never Patient Tobacco Use Status: Never used Tobacco e-Cigarette/Vaping Use: Never Used Second Hand Smoke Exposure: No service: No Current occupational status: disabled Cognitive needs: Yes Hearing needs: No Vision needs: Yes Physical Exam Vital Signs: BMI result Body Mass Index 32.1 Const Other: Well-nourished well-developed very friendly female awake alert and oriented x3 in no acute distress Extrem Other: Bilateral lower extremity examination shows good capillary refill, no skin lesions noted, normal sensation light touch Right knee examination shows a minimal effusion, minimal crepitus with range of motion, tenderness along her medial joint line, positive Erlin's test, no instability Results Reviewed Results Reviewed: X-rays of the patient's right knee show mild diffuse joint space narrowing, no acute bony abnormalities Assessment & Plan Assessment & Plan (1) Tear of medial meniscus of right knee: Code(s): S83.241A - Other tear of medial meniscus, current injury, right knee, initial encounter Category: Medical Plan Ms. Bernardo presents with progressively worsening right knee pain and mechanical symptoms most likely due to a medial meniscus tear. Thus, I will send the patient for an MRI of her right knee for further evaluation. I will see her back once the MRI is completed to discuss the findings and treatment options. Feel free to call me at any time should questions regarding her orthopedic management arise. Thank you very much for asking me to see this very friendly patient. I spent 21 minutes in reviewing the patient's records and imaging studies, seeing the patient and documenting in the medical record. Orders: Orders MR knee RT wo con Today S83.241A - Other tear of medial meniscus, current injury, right knee, initial encounter Coding Level of Care Code New Pt Level 3 (72418) Complex EM visit Add On G2211 Diagnoses Tear of medial meniscus of right knee S83.241A
[2024-08-12 09:14] VITALS: BMI 32.1
--- OUTSIDE RECORDS SUMMARY | 2024-08-12 09:46 | XMS_ITS | Clinical Summary ---
Author Organization [facility] Address [address] [place] [address] Care Team Providers Care Dehairing Machine Tender Name Role Phone Unavailable Primary Care Provider Unavailabl e Social History Tobacco Use Types Packs/Day Years Used Date Smoking Tobacco: Never Assessed Comments Unknown Sex and Gender Information Value Date Recorded Sex Assigned at Not on file Legal Sex Female 12:41 PM EDT Gender Identity Not on file Sexual Orientation Not on file Plan of Treatment Health Maintenance Due Date Last Done Comments Hepatitis C Virus Screening 1968 HIV Screening 1981 DTaP/Tdap/Td Vaccines (1 - Tdap) 05/31/1987 Hepatitis B Vaccines (1 of 3 - 19+ 3-dose series) 05/17 Pneumococcal Vaccines 50+ (1 of 1 - PCV) 2018 Zoster (Shingles) Vaccine (1 of 2) 2018 COVID-19 Vaccine ( - 2023- season) 2023
== END 2024-08-12 09:27 | disposition home or self-care (01) ==
LOC: HO.HOS 09:13
PROVIDERS: PCP Physician Assistant; Visit Provider Orthopaedic Surgery
DX: S83.241A Other tear of medial meniscus, current injury, right knee, initial encounter (principal)
CPT/HCPCS: 99203; G2211

== ENCOUNTER → 2024-08-12 09:12 | Outpatient (BNVA) | payer OTHER, SELFPAY | PROVIDERS: PCP Physician Assistant; Visit Provider Orthopaedic Surgery | DX: S83.241A Other tear of medial meniscus, current injury, right knee, initial encounter (principal); X58.XXXA Exposure to other specified factors, initial encounter; Y93.9 Activity, unspecified; Y92.9 Unspecified place or not applicable; Y99.9 Unspecified external cause status | CPT/HCPCS: 99202 ==

== ENCOUNTER 2024-08-20 09:59 | Outpatient (AMB) | payer OTHER, SELFPAY ==
--- NOTE | 2024-08-20 10:08 | A.OFFPC_ITS ---
Vital Signs 08/20/24 10:09 Height 5 ft 6 in Weight 206 lb 4 oz BMI 33.3 BP 138/66 Blood Pressure Location Lt brachial Position Sitting Pulse 76 Pulse Source Pulse Oximeter Temp 96.9 F Temp Source Temporal Artery Scan Pulse Oximetry (%) 97 Oxygen Delivery Method Room Air Intake Visit Reasons: f/u HTN Intake Note: Patient is here to follow up on HTN. Expert Witness Required: No Flamer Sealer: Present Accompanied by: THREADING MACHINE SETTER Allergies No Known Allergies Allergy (Verified 08/20/24 10:22) Medication List - Last Reconciled 08/20/24 by Paulo Maldonado PA-C amlodipine 10 mg PO DAILY 90 days atorvastatin 10 mg PO DAILY 90 days blood pressure test kit-medium As directed carbamazepine ER 300 mg PO BID cholecalciferol (vitamin D3) 50 mcg PO DAILY 90 days clopidogrel 75 mg PO DAILY diaper,brief,adult,disposable (Briefs Small) As directed famotidine 20 mg PO DAILY 90 days gabapentin 300 mg PO BID hydrochlorothiazide 12.5 mg PO DAILY 90 days labetalol 400 mg (2 x 200 mg) PO BID lisinopril 40 mg PO DAILY 90 days melatonin 5 mg PO BEDTIME memantine 10 mg PO QPM 90 days mirtazapine 7.5 mg PO BEDTIME 90 days [RIGHT ANKLE AFO As directed] Tobacco use date assessed: 08/20/24 Dental Screening Dental Screen Date: 06/06/24 HPI f/u HTN HPI Details Patient is a 53 year-old female here today?for follow-up visit . ? Patient has a past medical history significant for hypertension, MDD, h/o CVA complicated by dysarthria. Concern--> she reports she has been having severe abdominal cramps particularly when using the restroom though does has been on random occasions. Her abdominal cramps has been evident over the last 4 months or so.. She denies any constipation, , fevers or any notable weight loss. She does report loose stools. Right knee pain: Recent x-ray showing significant joint effusion and arthritis. She has followed up with Orthopedic who recommends an MRI. She is concerned a bout doing injections or knee aspiration as she has fearful of needles. .. Class 1 obesity: Has gained weight since last office visit likely related to her not being as physically active secondary to her right knee pain Major? Depressive disorder:? Patient continues on mirtazapine 7.5 mg at bedtime. She has moved into a different apartment and has a personal THREADING MACHINE SETTER which has also helped her depression. . .. CVA:? 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 She has recently seen speech language pathologist who recommend her getting a modified barium swallow, seeing a speech language pathologist that this trained in [facility] giving her adaptive devices for communication ([facility] rehab, [facility] rehab? ectt..) and new neurologist for further evaluation.? Family has noticed a difference in her cognition since being treated for her depression. She has followed up with a speech language pathologist in the past and was turned on to now has a tablet for communication, unfortunately does not use the tablet much for communication as she found it difficult to hold and to use. 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 .. HTN:? Blood pressure improved today in office.? We have added hydrochlorothiazide to her blood pressure med regime. She does admit to increased urination throughout the day. She reports being adherent to all of her blood pressure medication. Otherwise denies any chest discomfort, palpitations, shortness of breath . [facility] Medical History (Updated 08/20/24 @ 10:32 by Paulo Maldonado PA-C) Arthralgia Pain in right lower leg Leg cramps Seizure Hypersomnia Right spastic hemiparesis Aphasia as late effect of cerebrovascular accident H/O: CVA (cerebrovascular accident) Seizure cerebral Surgical History History of surgery H/O elbow surgery Family History Father No problems noted. Mother Hypertension Hyperlipidemia Acute CVA (cerebrovascular accident) Son Heart problem Social History Housing: Other Housing Other:: has own apartment Alcohol intake: never Patient Tobacco Use Status: Never used Tobacco e-Cigarette/Vaping Use: Never Used Second Hand Smoke Exposure: No service: No Current occupational status: disabled Cognitive needs: Yes Hearing needs: No Vision needs: Yes Questionnaire PHQ-9 Over the last 2 weeks, how often have you been bothered by any of the following problems? 1. Little interest or pleasure in doing things: not at all 2. Feeling down, depressed, or hopeless: not at all 3. Trouble falling or staying asleep, or sleeping too much: several days 4. Feeling tired or having little energy: more than half the days 5. Poor appetite or overeating: not at all 6. Feeling bad about yourself - or that you are a failure or have let yourself or your family down: not at all 7. Trouble concentrating on things, such as reading the newspaper or watching television: not at all 8. Moving or speaking so slowly that other people could have noticed. Or the opposite - being so fidgety or restless that you have been moving around a lot more than usual: not at all 9. Thoughts that you would be better off or of hurting yourself in some way: not at all Total score: 3 Depression Screening Interpretation: Positive Depression Screening Follow-up: Existing condition Depression Screening Done: Yes 81985 - PHQ-9 Billing: Yes Source: Developed by Drs. Christofer Ruelas, Layla Frye, Ellis Munoz and colleagues, with an educational morales from [employer]. Thrive Questionnaire Date Thrive assessed: 04/14/24 I am a: Patient What is your living situation today?: I have a steady place to live Within the past 12 months, did the food you bought not last and you didn't have the money to get more?: Never true Within the past 12 months, did you worry whether your food would run out before you got money to buy more?: Never true Do you have trouble paying for medicines?: No Do you have trouble getting transportation to medical appointments?: No Do you have trouble paying your heating and electricity bill?: No Do you have trouble taking care of your child, family member or friend?: No Do you have trouble with day-to-day activities such as bathing, preparing meals, shopping, managing finances, etc.?: No Are you currently unemployed and looking for a job?: No Are you interested in more education?: No Please select the resources that you would like help with: None Currently or been in a relationship where the following occur: No concerns reported THRIVE Score: 0 AUDIT C Alcohol Use Questionnaire (AUDIT-C) 1. How often do you have a drink containing alcohol?: Never Total Score: 0 JOSELYN-7 AMB Questionnaire JOSELYN-7 Date JOSELYN - 7 assessed: 06/18/24 Feeling nervous, anxious, or on edge: 0 = Not at all Not being able to stop or control worryin = Not at all Worrying too much about different things: 0 = Not at all Trouble relaxin = Several days Being so restless that it is hard to sit still: 0 = Not at all Becoming easily annoyed or irritable: 0 = Not at all Feeling afraid as if something awful might happen: 0 = Not at all Total JOSELYN-7 score (0-4 normal; 5-9 mild; 10-14 moderate; 15-21 severe): 1 Source: Developed by Drs. Christofer Ruelas, Layla Frye, Ellis Munoz and colleagues, with an educational morales from [employer]. Review of Systems Const Denies headache(s) Eyes Denies loss of vision ENT Denies vertigo, Denies dizziness, Denies headache(s) and Denies sore throat Card Denies chest pain, Denies leg edema and Denies lightheadedness Resp Denies cough, Denies hemoptysis and Denies wheezing GI Denies abdominal pain, Denies melena, Denies constipation, Denies diarrhea and Denies vomiting Denies urinary frequency, Denies dysuria and Denies urinary urgency Musc Denies arthralgias, Denies joint swelling, Denies numbness and Denies tingling Neuro Denies Abnormal speech present, Denies behavioral changes, Denies vertigo, Denies dizziness, Denies headache(s), Denies loss of vision, Denies memory loss, Denies numbness and Denies tingling Psych Denies anxiety, Denies behavioral changes, Denies depression, Denies memory loss and Denies panic attacks Alcon/Lymph Denies easy bleeding and Denies easy bruising Aller/Immun Denies wheezing Physical exam (Primary Care) Vital Signs: Last Vital Signs Temp 96.9 F 08/20/24 10:09 Pulse 76 08/20/24 10:09 BP 138/66 08/20/24 10:09 Pulse Ox 97 08/20/24 10:09 Oxygen Delivery Method Room Air 08/20/24 10:09 BMI result Body Mass Index 33.3 Tobacco/Smoking Status: Tobacco use Status Tobacco use date assessed 08/20/24 08/20/24 10:21 Patient Tobacco Use Status Never used Tobacco 08/20/24 10:21 e-Cigarette/Vaping Use Never Used 08/20/24 10:21 PHQ-9: PHQ-9 Score PHQ-9: Total score 3 08/20/24 10:25 Depression Screening Interpretation: Positive Depression Screening Follow-up: Existing condition Thrive Assessment: Date of Thrive Assessment Date Thrive assessed 04/14/24 08/20/24 10:21 Currently or been in a relationship where the following occur: No concerns reported Const General: healthy appearing, no acute distress, alert and awake Nutritional Appearance: well nourished Orientation/consciousness: oriented to person, oriented to place and oriented to time HENMT Ears: TM's normal bilaterally General nose exam: Normal nasal mucous membranes and turbinates present Eyes Conjunctivae: conjunctivae normal Sclerae: sclerae normal Pupils: Equal, round and reactive pupils present Neck Neck: Yes no lymphadenopathy and Yes no JVD Thyroid: Thyroid normal Carotids: no bruits Resp Effort & Inspection: normal respiratory effort and not tachypneic Auscultation: no crackles, no rales, no rhonchi and no wheezes Cardio Rate: regular rate Rhythm: regular rhythm Heart sounds: no murmurs and normal S1 and S2 GI Palpation (GI): Soft to palpation, nontender, no hepatomegaly and no splenomegaly Auscultation: normal bowel sounds Skin General skin exam: no rashes or lesions noted and dry skin Neuro General: oriented to person, oriented to place and oriented to time Cranial nerves: Yes Equal, round and reactive pupils present Speech: No Abnormal speech present Gait exam (Neuro): Normal gait present Motor exam (neuro): no tremor noted Extrem Right upper extremity: full ROM Left upper extremity: full ROM Right lower extremity: full ROM; no edema Left lower extremity: full ROM; no edema Psych Mental Status: mental status grossly normal Speech and movement: Normal speech and movement present Affect: normal affect Attitude: cooperative Thought process: Normal thought process present Coding Level of Care Code Est Pt Level 4 (65012) Diagnoses Chronic pain of right knee M25.561; G89.29 Chronicity: chronic Right spastic hemiparesis G81.11 Essential hypertension I10 Hypertension type: essential hypertension Abdominal cramping R10.9 Additional Codes PHQ-9 - 50158 - PHQ-9 Billing: Yes ([id number]) Assessment & Plan Assessment & Plan (1) Right knee pain: Code(s): M25.561 - Pain in right knee Category: Medical Qualifiers: Chronicity: chronic Qualified Code(s): M25.561 - Pain in right knee; G89.29 - Other chronic pain Plan: As per HPI patient has been having right knee pain to which has been causing her ambulation issues. She does have right-sided hemiplegia due to her previous brain stroke. She does ambulate with a cane though does have times of imbalance. She did get an x-ray 2 months ago which did show a large joint effusion. She has followed up with Orthopedics whom recommend getting an MRI to evaluate for soft tissue abnormality. We did discuss possibly going to Orthopedic urgent care to have need drain that may give her symptomatic relief though she concerned about needles. (2) Right spastic hemiparesis: Comment: s/p Left MCA infarct in 2010 , s/p aneurysmal rupture ( M1) Code(s): G81.11 - Spastic hemiplegia affecting right dominant side Category: Medical Plan: As per HPI, patient has right-sided hemiparesis secondary to her brain aneurysm surgery. She is ambulating with a cane for assistance. She has been noted to have some weakness and issues with her balance. Family asking for electric scooter to help her with her mobility. Will refer to [facility] physical therapy for evaluation for electric scooter Family also interested having patient return back to speech therapy to help her with her communication. (3) HTN (hypertension): Code(s): I10 - Essential (primary) hypertension Category: Medical Qualifiers: Hypertension type: essential hypertension Qualified Code(s): I10 - Essential (primary) hypertension Plan: Patient's blood pressure acceptable today. We have added hydrochlorothiazide to her medication which seems to have helped her blood pressure. Goal blood pressure is to be below 140/90 (4) Abdominal cramping: Code(s): R10.9 - Unspecified abdominal pain Category: Medical Plan: Patient reporting fairly severe abdominal cramps that hip on her random occasion. She does admit to loose stool. Will try for an ultrasound to evaluate for an intra abdominal pathology. We did discuss possibly trying a bowel spasm medication though will hold off on this for now. Orders: Orders US abdomen complete Today R10.9 - Unspecified abdominal pain Medications: Refilled famotidine 20 mg PO DAILY 90 days 90 tabs 11RF K21.9 - Gastro-esophageal reflux disease without esophagitis
[2024-08-20 10:09] VITALS: BP 138/66; PULSE 76; TEMP 36.1; O2SAT 97; BMI 33.3
--- OUTSIDE RECORDS SUMMARY | 2024-08-20 10:35 | XMS_ITS | Clinical Summary ---
Author Organization [facility] Address [address] [place] [address] Care Team Providers Care Therapy Administrative Assistant Name Role Phone Unavailable Primary Care [...]
== END 2024-08-20 10:49 | disposition home or self-care (01) ==
LOC: HO.HMCH 10:00
PROVIDERS: PCP Physician Assistant; Visit Provider Physician Assistant
DX: M25.561 Pain in right knee (principal); G89.29 Other chronic pain; G81.11 Spastic hemiplegia affecting right dominant side; I10 Essential (primary) hypertension; R10.9 Unspecified abdominal pain

== ENCOUNTER → 2024-08-20 09:59 | Outpatient (BNVA) | payer OTHER, SELFPAY | PROVIDERS: PCP Physician Assistant; Visit Provider Physician Assistant | DX: I10 Essential (primary) hypertension (principal); M25.561 Pain in right knee; E66.811 Obesity, class 1; F32.A Depression, unspecified; G89.29 Other chronic pain; I69.351 Hemiplegia and hemiparesis following cerebral infarction affecting right dominant side; Z68.33 Body mass index [BMI] 33.0-33.9, adult | CPT/HCPCS: 96127; 99212 ==

== ENCOUNTER 2024-09-05 11:53 | Outpatient (REF) | payer OTHER, SELFPAY ==
--- NOTE | ~2024-09-05 | MR_ITS ---
EXAMINATION: MR KNEE WITHOUT CONTRAST, RIGHT CLINICAL INFORMATION: Right knee pain COMPARISON: X-ray June 27, 2024 TECHNIQUE: Multiplanar multisequence MRI of lower extremity joint without contrast was performed using routine sequences on a high-field scanner. FINDINGS: Menisci: Lateral Meniscus: There is a horizontal tear in the anterior horn lateral meniscus extending into the meniscal body and possibly involving the posterior horn. There is mild extrusion of the lateral meniscal body. Medial Meniscus: Intact with mild extrusion. ACL/PCL: ACL demonstrates intermediate signal. It appears intact. PCL appears intact. Extensor mechanism: There is a joint effusion. Fat pads are unremarkable. Quadriceps and patellar tendons are unremarkable. MCL/LCL: Trace fluid tracks along the surface of the superficial MCL. MCL is intact. LCL complex is intact. Articular cartilage: Patellofemoral Compartment: There is a focal 5 mm articular cartilage defect at the junction of middle third, upper third patella, the far medial margin. Also, in the mid third and upper third patella, across the medial facet, there is articular cartilage loss involving more than half the cartilage thickness. Cartilage is intact across the inferior third patella. There is a 10 mm deep partial and full-thickness articular cartilage defect in the far inferior medial trochlea with adjacent reactive marrow signal. Trochlear cartilage is intact otherwise. Lateral Compartment: There is thinning of cartilage in the far posterior lateral femoral condyle. Medial Compartment: Articular cartilage is intact. Bones/Marrow: Small marginal osteophytes are present involving to plateau and femoral condyles. Soft tissues: There is mild edema reticulates the superficial subcutaneous soft tissues. There is no mass, fluid collection, muscle edema, or fatty infiltration. MR/MR knee RT wo con IMPRESSION: Anterior horn and body of the lateral meniscus is torn. There is grade II chondromalacia across the middle third and upper third medial facet of patella with focal full-thickness 5 mm articular cartilage defect along the far medial margin. There is also a deep partial and full-thickness articular cartilage defect involving the inferior medial trochlea. There are small marginal osteophytes consistent with osteoarthritis. Joint effusion Electronically signed by: Femi Lerner MD 09/05/2024 02:53 PM EDT
--- NOTE | ~2024-09-05 | XR_ITS ---
Exam: 2 view skull x-ray INDICATION: Metal screening, pre-MRI TECHNIQUE: AP and lateral views of the skull. Prior: None FINDINGS: Metallic device is present in the mid to anterior lower skull, left of midline. No other radiopaque metal is visible. XR/XR pre mri screening IMPRESSION: Metal coil or clip probably related to an MCA aneurysm occlusion. Electronically signed by: Femi Lerner MD 09/05/2024 01:30 PM EDT
--- OUTSIDE RECORDS SUMMARY | 2024-09-05 12:09 | XMS_ITS | Clinical Summary ---
Author Organization [facility] Address [address] [place] [address] Care Team Providers Care Manager Environmental Affairs Name Role Phone Unavailable Primary Care Provider [...]
[2024-09-05 12:25] LABS: Hematocrit 39.8 % (37.0-47.0); Hemoglobin 13.2 g/dl (12.0-16.0); Mean Corpuscular HGB Conc 33.2 g/dl (31.0-35.0); Mean Corpuscular Hemoglobin 28.1 pg (27.0-33.0); Mean Corpuscular Volume 84.7 fL (80.0-98.0); Mean Platelet Volume 10.2 fL (9.4-12.3); Platelet Count 272 X10*3/uL (160-400); Red Cell Distribution Width 14.2 % (11.0-16.0); White Blood Count 5.9 X10*3/uL (4.8-10.8)
[2024-09-05 13:04] LABS: Alanine Aminotransferase 19 U/L (0-31); Albumin Level 4.4 g/dL (3.5-5.0); Alkaline Phosphatase 112 U/L (39-117); Anion Gap 9 (12-20); Aspartate Amino Transferase 25 U/L (5-31); Bilirubin Total 0.3 mg/dL (0.0-1.0); Blood Urea Nitrogen 13 mg/dL (9-16); Carbon Dioxide 28 mmol/L (22-29); Chloride 110 mmol/L (96-108); Cholesterol 181 mg/dL (<200); Estimated Glomerular Filt Rate > 60; Glucose Fasting 85 mg/dL (60-99); HDL Cholesterol 57 mg/dL (>40); LDL Cholesterol Calculated 112 mg/dL (<100); Potassium 3.5 mmol/L (3.3-5.1); Sodium 143 mmol/L (135-145); Total Protein 7.3 g/dL (6.5-8.0); Triglycerides 60 mg/dL (<150)
[2024-09-05 14:06] LABS: Creatinine Urine 207.13 mg/dL; Microalbum/Creatinine Ratio Ur 32.8 ug/mg cr (<30)
== END 2024-09-05 11:54 | disposition home or self-care (01) ==
LOC: HO.MRI 11:53
PROVIDERS: Absent Provider Physician Assistant; PCP Physician Assistant; Visit Provider Orthopaedic Surgery
DX: S83.241A Other tear of medial meniscus, current injury, right knee, initial encounter (principal); E78.5 Hyperlipidemia, unspecified; I10 Essential (primary) hypertension
CPT/HCPCS: 36415; 73721; 80053; 80061; 82043; 82570; 85027

== ENCOUNTER → 2024-09-05 12:25 | Outpatient (BNV) | payer OTHER, SELFPAY | PROVIDERS: Absent Provider Physician Assistant; PCP Physician Assistant; Visit Provider Radiology Diagnostic Radiology | DX: M23.241 Derangement of anterior horn of lateral meniscus due to old tear or injury, right knee (principal) | CPT/HCPCS: 73721 ==

== ENCOUNTER 2024-10-17 10:03 | Outpatient (REF) | payer OTHER, SELFPAY ==
--- NOTE | ~2024-10-17 | US_ITS ---
CLINICAL HISTORY: R10.9 - Unspecified abdominal pain US abdomen complete Comparison: None provided Findings: The visualized pancreas is normal. The aorta and inferior vena cava are normal caliber. The liver is normal in size and echotexture. Right lobe length is 15.7 cm. There is no intrahepatic bile duct dilatation. The common duct is 3 mm in diameter. The gallbladder is normal. There is no sonographic Lai sign. The main portal vein is antegrade. The right kidney is 10.6 cm in length. The left kidney is 9.6 cm in length. The spleen is 7.1 cm in length. No ascites. IMPRESSION: 1. Normal complete abdominal ultrasound. This document has been electronically signed by: Omar Mark MD on 10/17/2024 22:21:08
--- OUTSIDE RECORDS SUMMARY | 2024-10-17 10:12 | XMS_ITS | Clinical Summary ---
Author Organization [facility] Address [address] [place] [address] Care Team Providers Care Aircraft Pneudraulic Systems Mechanic Name Role Phone Unavailable Primary Care Provider [...]
== END 2024-10-17 10:04 | disposition home or self-care (01) ==
LOC: HO.US 10:03
PROVIDERS: Visit Provider Physician Assistant
DX: R10.9 Unspecified abdominal pain (principal)
CPT/HCPCS: 76700

== ENCOUNTER → 2024-10-17 10:05 | Outpatient (BNV) | payer OTHER, SELFPAY | PROVIDERS: Visit Provider Radiology Diagnostic Radiology | DX: R10.9 Unspecified abdominal pain (principal) | CPT/HCPCS: 76700 ==

== ENCOUNTER 2024-11-20 13:02 | Outpatient (AMB) | payer OTHER, SELFPAY ==
--- NOTE | 2024-11-20 13:08 | A.OFFVIS_ITS ---
Vital Signs 11/20/24 13:10 Height 5 ft 6 in Intake Visit Reasons: OV MRI Review RT knee Intake Note: Mulu is 54 year old female who presents for follow-up of her right knee pain. The patient states that her discomfort has improved somewhat since her last visit. She continues to walk with a cane. She denies any locking or giving way. Accompanied by: GROUND INSTRUCTOR ADVANCED Allergies No Known Allergies Allergy (Verified 11/20/24 13:09) Medication List - Last Reconciled 11/20/24 by Damon Vazquez MD amlodipine 10 mg PO DAILY 90 days atorvastatin 10 mg PO DAILY 90 days blood pressure test kit-medium As directed carbamazepine ER 300 mg PO BID cholecalciferol (vitamin D3) 50 mcg PO DAILY 90 days clopidogrel 75 mg PO DAILY diaper,brief,adult,disposable (Briefs Small) As directed famotidine 20 mg PO DAILY 90 days gabapentin 300 mg PO BID 30 days hydrochlorothiazide 12.5 mg PO DAILY 90 days labetalol 400 mg (2 x 200 mg) PO BID lisinopril 40 mg PO DAILY 90 days melatonin 5 mg PO BEDTIME memantine 10 mg PO QPM 90 days mirtazapine 7.5 mg PO BEDTIME 90 days [RIGHT ANKLE AFO As directed] [facility] Medical History (Updated 08/20/24 @ 10:32 by Paulo Maldonado PA-C) Arthralgia Pain in right lower leg Leg cramps Seizure Hypersomnia Right spastic hemiparesis Aphasia as late effect of cerebrovascular accident H/O: CVA (cerebrovascular accident) Seizure cerebral Surgical History History of surgery H/O elbow surgery Family History Father No problems noted. Mother Hypertension Hyperlipidemia Acute CVA (cerebrovascular accident) Son Heart problem Social History Housing: Other Housing Other:: has own apartment Alcohol intake: never Patient Tobacco Use Status: Never used Tobacco e-Cigarette/Vaping Use: Never Used Second Hand Smoke Exposure: No service: No Current occupational status: disabled Cognitive needs: Yes Hearing needs: No Vision needs: Yes Physical Exam Const Other: Well-nourished well-developed very friendly female awake alert and oriented x3 in no acute distress Extrem Other: Right knee examination shows a minimal effusion, minimal crepitus with range of motion, tenderness along her lateral joint line, positive Erlin's test, no instability Results Reviewed Results Reviewed: MRI of the patient's right knee shows mild to moderate diffuse degenerative changes as well as a tear of the lateral meniscus Assessment & Plan Assessment & Plan (1) Right knee pain: Code(s): M25.561 - Pain in right knee Category: Medical Qualifiers: Chronicity: chronic Qualified Code(s): M25.561 - Pain in right knee; G89.29 - Other chronic pain Plan Ms. Bernardo presents with intermittent right knee discomfort due to early degenerative joint disease as well as a tear of her lateral meniscus. I had a lengthy discussion with the patient regarding the treatment options. At this point the patient's symptoms are tolerable to her. She will continue with her activity modifications. She will follow up with me on an as-needed basis should her symptoms worsen in any way. Feel free to call me at any time should questions regarding her orthopedic management arise. I spent 22 minutes in reviewing the patient's records and imaging studies, seeing the patient and documenting in the medical record. Coding Level of Care Code Est Pt Level 3 (68400) Complex EM visit Add On G2211 Diagnoses Chronic pain of right knee M25.561; G89.29 Chronicity: chronic
== END 2024-11-20 13:25 | disposition home or self-care (01) ==
LOC: HO.HOS 13:03
PROVIDERS: Visit Provider Orthopaedic Surgery
DX: M25.561 Pain in right knee (principal); G89.29 Other chronic pain
CPT/HCPCS: 99213; G2211

== ENCOUNTER → 2024-11-20 13:02 | Outpatient (BNVA) | payer OTHER, SELFPAY | PROVIDERS: Visit Provider Orthopaedic Surgery | DX: M25.561 Pain in right knee (principal); G89.29 Other chronic pain; G81.11 Spastic hemiplegia affecting right dominant side; I10 Essential (primary) hypertension; E66.811 Obesity, class 1; Z68.34 Body mass index [BMI] 34.0-34.9, adult; I69.322 Dysarthria following cerebral infarction; F32.9 Major depressive disorder, single episode, unspecified; Z13.31 Encounter for screening for depression; Z13.39 Encounter for screening examination for other mental health and behavioral disorders | CPT/HCPCS: 96127; 99212 ==

== ENCOUNTER 2024-11-20 13:33 | Outpatient (AMB) | payer OTHER, SELFPAY ==
[2024-11-20 13:36] VITALS: BP 160/80; PULSE 74; RESP 18; TEMP 36.3; O2SAT 96; BMI 34.1
--- NOTE | 2024-11-20 13:36 | MHC.PC.OV ---
Vital Signs 11/20/24 13:36 11/20/24 14:12 Height 5 ft 6 in Weight 211 lb 3.245 oz BMI 34.1 BP 160/80 H 142/70 H Blood Pressure Location Lt brachial Position Sitting Respiration 18 Pulse 74 Pulse Source Pulse Oximeter Temp 97.3 F Temp Source Temporal Artery Scan Pulse Oximetry (%) 96 Oxygen Delivery Method Room Air Intake Visit Reasons: f/u HTN Property Master Required: No Accompanied by: Self / Same As Patient Allergies No Known Allergies Allergy (Verified 11/20/24 13:59) Medication List - Last Reconciled 11/20/24 by Paulo Maldonado PA-C amlodipine 10 mg PO DAILY 90 days atorvastatin 10 mg PO DAILY 90 days blood pressure test kit-medium As directed carbamazepine ER 300 mg PO BID cholecalciferol (vitamin D3) 50 mcg PO DAILY 90 days clopidogrel 75 mg PO DAILY diaper,brief,adult,disposable (Briefs Small) As directed famotidine 20 mg PO DAILY 90 days gabapentin 300 mg PO BID 30 days hydrochlorothiazide 12.5 mg PO DAILY 90 days labetalol 400 mg (2 x 200 mg) PO BID lisinopril 40 mg PO DAILY 90 days melatonin 5 mg PO BEDTIME memantine 10 mg PO QPM 90 days mirtazapine 7.5 mg PO BEDTIME 90 days [RIGHT ANKLE AFO As directed] Tobacco use date assessed: 11/20/24 Dental Screening Dental Screen Date: 11/20/24 Did you have a dental visit in the last 12 months?: Yes Did you have a dental problem in the last 6 months where you did not have access to dental care?: No Was dental information given to patient?: Patient has dentist HPI f/u HTN HPI Details Patient is a 54 year-old female here today?for follow-up visit . ? Patient has a past medical history significant for hypertension, MDD, h/o CVA complicated by dysarthria. Right knee pain: Has followed up with Orthopedics Recent x-ray showing significant joint effusion and arthritis. She is apprehensive on doing any physical therapy MRI of the right knee showing- Anterior horn and body of the lateral meniscus is torn. .. Class 1 obesity: Has gained weight since last office visit likely related to her not being as physically active secondary to her right knee pain Major? Depressive disorder:? Patient continues on mirtazapine 7.5 mg at bedtime. She has moved into a different apartment and has a personal [employer] which has also helped her depression. . .. CVA:? 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 She has recently seen speech language pathologist who recommend her getting a modified barium swallow, seeing a speech language pathologist that this trained in [facility] giving her adaptive devices for communication ([facility] rehab, [facility] rehab? ectt..) and new neurologist for further evaluation.? Family has noticed a difference in her cognition since being treated for her depression. She has followed up with a speech language pathologist in the past and was turned on to now has a tablet for communication, unfortunately does not use the tablet much for communication as she found it difficult to hold and to use. 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 .. HTN:? Blood pressure elevated today in office, will increase her hydrochlorothiazide to 25 mg for better blood pressure control.? She does admit to increased urination throughout the day. She reports being adherent to all of her blood pressure medication. Otherwise denies any chest discomfort, palpitations, shortness of breath [facility] Medical History Arthralgia Pain in right lower leg Leg cramps Seizure Hypersomnia Right spastic hemiparesis Aphasia as late effect of cerebrovascular accident H/O: CVA (cerebrovascular accident) Seizure cerebral Surgical History History of surgery H/O elbow surgery Family History Father No problems noted. Mother Hypertension Hyperlipidemia Acute CVA (cerebrovascular accident) Son Heart problem Social History Housing: Other Housing Other:: has own apartment Alcohol intake: never Patient Tobacco Use Status: Never used Tobacco e-Cigarette/Vaping Use: Never Used Second Hand Smoke Exposure: No service: No Current occupational status: disabled Cognitive needs: Yes Hearing needs: No Vision needs: Yes Questionnaire PHQ-9 Over the last 2 weeks, how often have you been bothered by any of the following problems? 1. Little interest or pleasure in doing things: not at all 2. Feeling down, depressed, or hopeless: not at all 3. Trouble falling or staying asleep, or sleeping too much: several days 4. Feeling tired or having little energy: more than half the days 5. Poor appetite or overeating: not at all 6. Feeling bad about yourself - or that you are a failure or have let yourself or your family down: not at all 7. Trouble concentrating on things, such as reading the newspaper or watching television: not at all 8. Moving or speaking so slowly that other people could have noticed. Or the opposite - being so fidgety or restless that you have been moving around a lot more than usual: not at all 9. Thoughts that you would be better off or of hurting yourself in some way: not at all Total score: 3 Depression Screening Interpretation: Positive Depression Screening Follow-up: Existing condition Depression Screening Done: Yes 34674 - PHQ-9 Billing: Yes Source: Developed by Drs. Christofer Ruelas, Layla Frye, Ellis Munoz and colleagues, with an educational morales from [employer]. Thrive Questionnaire Date Thrive assessed: 11/20/24 I am a: Patient What is your living situation today?: I have a steady place to live Within the past 12 months, did the food you bought not last and you didn't have the money to get more?: Never true Within the past 12 months, did you worry whether your food would run out before you got money to buy more?: Never true Do you have trouble paying for medicines?: No Do you have trouble getting transportation to medical appointments?: No Do you have trouble paying your heating and electricity bill?: No Do you have trouble taking care of your child, family member or friend?: No Do you have trouble with day-to-day activities such as bathing, preparing meals, shopping, managing finances, etc.?: No Are you currently unemployed and looking for a job?: No Are you interested in more education?: No Please select the resources that you would like help with: None Currently or been in a relationship where the following occur: No concerns reported THRIVE Score: 0 AUDIT C Alcohol Use Questionnaire (AUDIT-C) 1. How often do you have a drink containing alcohol?: Never Total Score: 0 JOSELYN-7 AMB Questionnaire JOSELYN-7 Date JOSELYN - 7 assessed: 11/20/24 Feeling nervous, anxious, or on edge: 0 = Not at all Not being able to stop or control worryin = Not at all Worrying too much about different things: 0 = Not at all Trouble relaxin = Several days Being so restless that it is hard to sit still: 0 = Not at all Becoming easily annoyed or irritable: 0 = Not at all Feeling afraid as if something awful might happen: 0 = Not at all Total JOSELYN-7 score (0-4 normal; 5-9 mild; 10-14 moderate; 15-21 severe): 1 Source: Developed by Drs. Christofer Ruelas, Layla Frye, Ellis Munoz and colleagues, with an educational morales from [employer]. JOSELYN-7 Assessment Billing JOSELYN-7 Assessment Tool: JOSELYN-7 Assessment 09987 Review of Systems Const Denies headache(s) Eyes Denies loss of vision ENT Denies vertigo, Denies dizziness, Denies headache(s) and Denies sore throat Card Denies chest pain, Denies leg edema and Denies lightheadedness Resp Denies cough, Denies hemoptysis and Denies wheezing GI Denies abdominal pain, Denies melena, Denies constipation, Denies diarrhea and Denies vomiting Denies urinary frequency, Denies dysuria and Denies urinary urgency Musc Denies arthralgias, Denies joint swelling, Denies numbness and Denies tingling Neuro Denies Abnormal speech present, Denies behavioral changes, Denies vertigo, Denies dizziness, Denies headache(s), Denies loss of vision, Denies memory loss, Denies numbness and Denies tingling Psych Denies anxiety, Denies behavioral changes, Denies depression, Denies memory loss and Denies panic attacks Alcon/Lymph Denies easy bleeding and Denies easy bruising Aller/Immun Denies wheezing Physical exam (Primary Care) Vital Signs: Last Vital Signs Temp 97.3 F 11/20/24 13:36 Pulse 74 11/20/24 13:36 Resp 18 11/20/24 13:36 BP 160/80 H 11/20/24 13:36 Pulse Ox 96 11/20/24 13:36 Oxygen Delivery Method Room Air 11/20/24 13:36 BMI result Body Mass Index 34.1 BMI Assessment/Plan discussion: High BMI High, discussed plan: lifestyle, weight reduction, dietary and physical activity Tobacco/Smoking Status: Tobacco use Status Tobacco use date assessed 11/20/24 11/20/24 13:48 Patient Tobacco Use Status Never used Tobacco 11/20/24 13:48 e-Cigarette/Vaping Use Never Used 11/20/24 13:48 PHQ-9: PHQ-9 Score PHQ-9: Total score 3 11/20/24 13:48 Depression Screening Interpretation: Positive Depression Screening Follow-up: Existing condition Thrive Assessment: Date of Thrive Assessment Date Thrive assessed 11/20/24 11/20/24 13:48 Currently or been in a relationship where the following occur: No concerns reported Const Other: Obese General: healthy appearing, no acute distress, alert and awake Nutritional Appearance: well nourished Orientation/consciousness: oriented to person, oriented to place and oriented to time HENMT Ears: TM's normal bilaterally General nose exam: Normal nasal mucous membranes and turbinates present Eyes Conjunctivae: conjunctivae normal Sclerae: sclerae normal Pupils: Equal, round and reactive pupils present Neck Neck: Yes no lymphadenopathy and Yes no JVD Thyroid: Thyroid normal Carotids: no bruits Resp Effort & Inspection: normal respiratory effort and not tachypneic Auscultation: no crackles, no rales, no rhonchi and no wheezes Cardio Rate: regular rate Rhythm: regular rhythm Heart sounds: no murmurs and normal S1 and S2 GI Palpation (GI): Soft to palpation, nontender, no hepatomegaly and no splenomegaly Auscultation: normal bowel sounds Skin General skin exam: no rashes or lesions noted and dry skin Neuro Other: RIGHT UPPER EXTREMITY AND RIGHT LOWER EXTREMITY WITH NOTABLE NEUROMUSCULAR WEAKNESS General: oriented to person, oriented to place and oriented to time Cranial nerves: Yes Equal, round and reactive pupils present Speech: No Abnormal speech present Gait exam (Neuro): Normal gait present Motor exam (neuro): no tremor noted Extrem Right upper extremity: full ROM Left upper extremity: full ROM Right lower extremity: full ROM; no edema Left lower extremity: full ROM; no edema Psych Mental Status: mental status grossly normal Speech and movement: Normal speech and movement present Affect: normal affect Attitude: cooperative Thought process: Normal thought process present Coding Level of Care Code Est Pt Level 4 (81125) Diagnoses Chronic pain of right knee M25.561; G89.29 Chronicity: chronic Right spastic hemiparesis G81.11 Essential hypertension I10 Hypertension type: essential hypertension Class 1 obesity E66.811 Additional Codes PHQ-9 - 42322 - PHQ-9 Billing: Yes ([id number]) JOSELYN-7 Assessment Billing - JOSELYN-7 Assessment Tool: JOSELYN-7 Assessment 92807 ([id number]) Assessment & Plan Assessment & Plan (1) Right knee pain: Code(s): M25.561 - Pain in right knee Category: Medical Qualifiers: Chronicity: chronic Qualified Code(s): M25.561 - Pain in right knee; G89.29 - Other chronic pain Plan: Has a meniscal tear in her right knee, has followed up with Orthopedics recently. She is not interested in physical therapy at this time (2) Right spastic hemiparesis: Comment: s/p Left MCA infarct in 2009 , s/p aneurysmal rupture ( M1) Code(s): G81.11 - Spastic hemiplegia affecting right dominant side Category: Medical Plan: As per HPI, patient has right-sided hemiparesis secondary to her brain aneurysm surgery. She is ambulating with a cane for assistance. She has been noted to have some weakness and issues with her balance. She has an upcoming appointment with speech therapy in the next few weeks. (3) HTN (hypertension): Code(s): I10 - Essential (primary) hypertension Category: Medical Qualifiers: Hypertension type: essential hypertension Qualified Code(s): I10 - Essential (primary) hypertension Plan: Patient's blood pressure elevated today, will increase her hydrochlorothiazide dose for better blood pressure control. Goal blood pressure is to be below 140/90 (4) Class 1 obesity: Code(s): E66.811 - Obesity, class 1 Category: Medical Plan: Patient does understand her BMI is over 30 will try to work on being more physically active and adapt to better eating habits to reduce her weight Medications: New hydrochlorothiazide 25 mg PO DAILY 90 tabs 1RF 90 days I10 - Essential (primary) hypertension Changed From gabapentin 300 mg PO BID 30 days 60 caps 6RF M25.561 - Pain in right knee To gabapentin 300 mg PO BID 180 caps 2RF 90 days M25.561 - Pain in right knee From labetalol 400 mg (2 x 200 mg) PO BID 180 caps 5RF To labetalol PLEASE BUBBLE PACK 400 mg (2 x 200 mg) PO BID 180 caps 5RF Refilled famotidine 20 mg PO DAILY 90 tabs 2RF 90 days K21.9 - Gastro-esophageal reflux disease without esophagitis lisinopril 40 mg PO DAILY 90 tabs 2RF 90 days I10 - Essential (primary) hypertension melatonin 5 mg PO BEDTIME 90 tabs 3RF amlodipine 10 mg PO DAILY 90 tabs 3RF 90 days I10 - Essential (primary) hypertension memantine 10 mg PO QPM 90 tabs 3RF 90 days G40.909 - Epilepsy, unspecified, not intractable, without status epilepticus, I69.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
[2024-11-20 14:12] VITALS: BP 142/70
--- OUTSIDE RECORDS SUMMARY | 2024-11-20 14:51 | XMS_ITS | Clinical Summary ---
Author Organization [facility] Address [address] [place] [address] Care Team Providers Care Manager Fleet Name Role Phone Unavailable Primary Care Provider [...] of 2) 2018 COVID-19 Vaccine ( - season) 2024
== END 2024-11-20 14:37 | disposition home or self-care (01) ==
LOC: HO.HMCH 13:34
PROVIDERS: PCP Physician Assistant; Visit Provider Physician Assistant
DX: M25.561 Pain in right knee (principal); G81.11 Spastic hemiplegia affecting right dominant side; E66.811 Obesity, class 1; Z68.34 Body mass index [BMI] 34.0-34.9, adult; G89.29 Other chronic pain; I10 Essential (primary) hypertension